=== PATIENT | female | born 1935 | race Caucasian/White ===

== ENCOUNTER → 2016-11-16 | Outpatient (CLI) | payer MEDICARE, BC ==
[~2016-11-16] MED LIST: AMLO2.5T2 PO; ATOR20TA38 PO; CALC500T PO; FURO-109 PO; GABA100C14 PO; KETO5DRO21 BOTH EYES; METO100T13 PO; MULT-552 PO; OMEP20CA16 PO; OXYM15SP34 NASAL; POTA-57 PO; PRED10TA PO; RIVA20TA PO; TRAM50TA2 PO
--- NOTE | 2016-11-16 18:08 | RADRPT ---
PROCEDURE: Limited x-ray of both lower extremities. CLINICAL INDICATION: Bilateral leg pain. TECHNIQUE: Single frontal view of both lower extremities was obtained from the hips to the calves. COMPARISON: None. FINDINGS: The hips are not well seen due to overlying soft tissues. There are severe degenerative changes of the right knee with lateral joint compartment narrowing and valgus deformity. There are mild degene rative changes of the left knee. IMPRESSION: 1. It is not well seen. 2. Severe degenerative changes of the right knee with valgus deformity. 3. Mild degenerative changes of the left knee. RPTAT: QQ .Star Larson MD, MD Date Time Electronically viewed and signed by .Star Larson MD, MD on 11/16/2016 18:07 .R/
== END | disposition home or self-care (01) ==
LOC: HKI 09:03
PROVIDERS: ATTEND Orthopaedic Surgery
DX: Z01.818 Encounter for other preprocedural examination (principal); M17.11 Unilateral primary osteoarthritis, right knee; M25.561 Pain in right knee; Z88.0 Allergy status to penicillin
CPT/HCPCS: 77073; G0463

== ENCOUNTER 2016-11-22 07:15 | Inpatient (IN) | payer MEDICARE, BC ==
--- NOTE | 2016-11-19 19:20 | CONS ---
DATE OF ADMISSION: 11/22/2016 DATE OF CONSULTATION: 11/19/2016 Thank you very much for allowing me to evaluate the above patient who is to undergo right knee repla cement on the above-mentioned date. HISTORICAL EVENTS: As you well know, this patient has had progressive and limiting pain involving h er right knee, and for this ultimately elected to treat with surgical intervention. Today, she trell es cough, wheezing, shortness of breath, substernal chest pain, radiating neck, arm or jaw discomfor t. She denies nausea, vomiting, abdominal pain, unusual constipation or diarrhea and denies symptom s of gastrointestinal bleeding with review of systems revealing the absence of dysuria, flank evert n, fever, chills or blood in her urine. PRESENT MEDICATIONS: 1. Lasix 40 mg/day. 2. Lipitor 20 mg per day. 3. Metoprolol succinate 100 mg day. 4. Ambien at bedtime p.r.n. 5. Neurontin 300 mg at night. 6. Omeprazole 20 mg per day, having stopped aspirin and Coumadin. PAST MEDICAL HISTORY: Includes: 1. Hypertension. 2. Hyperlipidemia. 3. Prior smoker. 4. Prior cholecystectomy. 5. Partial hysterectomy. 6. Mild osteopenia. 7. History of low back pain, having had epidurals in the past. 8. Aortic stenosis, undergoing percutaneous valve surgery in 10/2015 at [facility] having been maintain ed on Coumadin because of a "small clot" on the aortic valve noted by CT imaging. 9. Carotid noninvasive vascular studies have been unrevealing through 07/2015. 10. History of bilateral cataract surgery. 11. History of rapid atrial fibrillation in 06/2015, converting to sinus rhythm. ALLERGIES OR INTOLERANCES: INCLUDE: 1. PENICILLIN. 2. CODEINE. 3. ECHO-D. 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 She is a , has 2 children. FAMILY HISTORY: Dad of an aortic aneurysm. Mother breast cancer. PHYSICAL EXAMINATION: GENERAL: Overweight female in no acute distress. VITAL SIGNS: BP 129/72, respirations were 18. She was afebrile. EYES: Extraocular muscles were full. NOSE, MOUTH, AND THROAT: Normal. NECK: Supple. There was no jugular venous distention, thyroid enlargement or adenopathy. Carotids 2+, no bruits. LUNGS: Clear. HEART: Rhythm regular, I/ systolic murmur. No third or fourth sound. ABDOMEN: Nontender. Liver and spleen were not palpable. No masses or tenderness were noted. EXTREMITIES: Trace edema. No calf tenderness. Pulses were 1+ bilaterally. IMPRESSION: Pending labs, I forsee no problems with your planned surgical intervention. I will gla dly follow postoperatively with you. Dictated By: CUCO ALLEN/ANGELINA Conf#: [id number] DID#: [id number]
[2016-11-22] VITALS (17 sets, daily range): BP systolic 103–155; BP diastolic 43–79; PULSE 62–83; RESP 10–21
[~2016-11-22] VITALS: Ht 152.4 cm; Wt 79.2 kg
[2016-11-22] MEDS ORDERED: EXPAREL NOTE (BUPIVICAINE LIPOSOMAL) XX SCH (08:00)
[2016-11-22] MEDS ORDERED: VANCOMYCIN 1 GM/NS 250 ML X1 BEFORE INCISION IVPB ONE (08:00)
[2016-11-22] MEDS ORDERED: PREGABALIN 300 MG PO X1 PO ONE (08:00)
[2016-11-22] MEDS ORDERED: oxyCODONE (CR) 10 MG TAB [oxyCONTIN] X1 DOSE PO ONE (08:00)
[2016-11-22] MEDS ORDERED: TRANEXAMIC ACID 800 MG in SOD CHLORIDE 0.9% 92 ML IV ONE (08:00)
[2016-11-22] MEDS ORDERED: BUPIVACAINE LIPOSOME/PF 266 MG/20 ML VIAL INFIL SCH (08:00)
[2016-11-22] MEDS ORDERED: LACTATED RINGER'S 1,000 ML IV SCH (08:00)
[2016-11-22] MEDS ORDERED: traMADOL 50 MG TAB X 1 DOSE PO ONE (08:00)
[2016-11-22] MEDS ORDERED: CELECOXIB 400 MG PO X1 DOSE PO ONE (08:00)
[2016-11-22] MEDS ORDERED: PROPOFOL 100 ML ONE (09:41)
[2016-11-22] MEDS ORDERED: ROCURONIUM 50 MG INJ ONE (09:41)
[2016-11-22] MEDS ORDERED: CEFAZOLIN 1 GM INJ ONE ×2 (09:41→11:09)
[2016-11-22] MEDS ORDERED: FENTAnyl 50 MCG/ML VIAL ONE (09:41)
[2016-11-22] MEDS ORDERED: LIDOCAINE 100 MG SYRINGE ONE (09:41)
[2016-11-22] MEDS ORDERED: NEOSTIGMINE 3 MG/3 ML SYRINGE ONE (09:41)
[2016-11-22] MEDS ORDERED: ETOMIDATE 20 MG INJ ONE (09:41)
[2016-11-22] MEDS ORDERED: GLYCOPYRROLATE 1 MG INJ ONE (09:41)
[2016-11-22] MEDS ORDERED: DEXAMETHASONE 4 MG/ML 1 ML INJ ONE (09:42)
[2016-11-22] MEDS ORDERED: MIDAZOLAM 1 MG/ML 2 ML INJ ONE (09:42)
[2016-11-22] MEDS ORDERED: ONDANSETRON 4 MG INJ ONE (09:42)
[2016-11-22 09:57] LABS: INR 1.15; PROTIME 14.7 Sec (12.2-14.2); PT RATIO 1.1
[2016-11-22] MEDS ORDERED: TRANEXAMIC ACID 800 MG in SOD CHLORIDE 0.9% 100 ML IVPB SCH (10:00)
--- NOTE | 2016-11-22 10:19 | HPN ---
Date/Time of Note Date/Time of Note DATE: 11/22/16 TIME: 10:18 Interval H&P Admission Note Pt. seen H&P reviewed: No system changes No change from H&P on 10/16/16 by LESIA Ruano MD Nov 22, 2016 10:19
[2016-11-22] MEDS ORDERED: DIPHENHYDRAMINE 50 MG INJ IV PRN (11:30)
[2016-11-22] MEDS ORDERED: EPHEDrine SULFATE 50 MG/5 ML SYG IV PRN (11:30)
[2016-11-22] MEDS ORDERED: MEPERIDINE 25 MG INJ IV PRN (11:30)
[2016-11-22] MEDS ORDERED: hydrALAzine 20 MG INJ IV PRN (11:30)
[2016-11-22] MEDS ORDERED: HYDROmorphONE (0.2 MG/ML) 10ML SYG IV PRN ×3 (11:30)
[2016-11-22] MEDS ORDERED: MIDAZOLAM 1 MG/ML 2 ML INJ IV PRN (11:30)
[2016-11-22] MEDS ORDERED: FENTAnyl 50 MCG/ML VIAL IV PRN ×3 (11:30)
[2016-11-22] MEDS ORDERED: ONDANSETRON 4 MG INJ IV PRN ×2 (11:30→13:00)
[2016-11-22] MEDS ORDERED: LABETALOL HCL 20MG INJ IV PRN (11:30)
[2016-11-22] MEDS ORDERED: TRIMETHOBENZAMIDE 100 MG/ML VIAL IM PRN (11:30)
[2016-11-22] MEDS ORDERED: SODIUM CL BACTERIOSTATIC 30 ML INJ ONE (11:31)
[2016-11-22] MEDS ORDERED: POLYMYXIN B 500000 UNIT INJ ONE (11:31)
[2016-11-22] MEDS ORDERED: VANCOMYCIN 1 GM INJ ONE (11:31)
[2016-11-22] MEDS ORDERED: BACITRACIN 50000 UNITS INJ IRR ONE (11:50)
[2016-11-22] MEDS ORDERED: BACITRACIN 50000 UNITS INJ ONE (12:16)
[2016-11-22] MEDS: PAIN COCKTAIL - VANCOMYCIN IRR SCH ×7 (12:16)
[2016-11-22] MEDS ORDERED: DIPHENHYDRAMINE 25 MG CAP PO PRN (13:00)
[2016-11-22] MEDS ORDERED: BISACODYL 10 MG SUPP PR PRN (13:00)
[2016-11-22] MEDS ORDERED: MAGNESIUM HYDROXIDE 30ML CUP PO PRN (13:00)
[2016-11-22] MEDS ORDERED: oxyCODONE 5 MG TAB PO PRN ×2 (13:00)
[2016-11-22] MEDS ORDERED: NA PHOSPHATE/BIPHOS 133 ML ENEMA PR PRN (13:00)
[2016-11-22] MEDS ORDERED: HYDROmorphONE 1 MG/ML SYG IV PRN (13:00)
[2016-11-22] MEDS ORDERED: NACL 0.9% 3 ML SYG IV SCH (13:00)
--- NOTE | 2016-11-22 13:58 | CONS ---
DATE OF ADMISSION: 11/22/2016 DATE OF CONSULTATION: 11/22/2016 TYPE OF CONSULTATION: Postop medical Dear Dr. Whalen: Thank you very much for allowing me to evaluate the above patient, who just underwent right knee rep lacement. HISTORICAL EVENTS: As you well know, this patient did undergo surgery earlier today for unrelenting pain involving her right knee. In recovery postoperatively, she is comfortable without cough, whee zing, shortness of breath, nausea, vomiting, abdominal or chest pain. As you well know, prior to villegas rgery she did have evidence of pyuria and bacteriuria, and was given Cipro, having received 2 doses prior to surgery. MEDICATIONS: Prior to admission: 1. Lasix 40 mg per day. 2. Lipitor 20 mg per day. 3. Metoprolol 100 mg per day. 4. Ambien 5 at bedtime p.r.n. 5. Neurontin 300 mg per night. 6. Omeprazole 20 mg daily, having stopped Coumadin and aspirin. PAST MEDICAL HISTORY: Includes: 1. Hypertension. 2. Hyperlipidemia. 3. Prior smoker. 4. Partial hysterectomy. 5. Cholecystectomy. 6. History of osteopenia. 7. Aortic stenosis, undergoing a percutaneous valve surgery 10/2015. 8. History of atrial fibrillation in 07/14/2016, now in sinus rhythm. ALLERGIES OR INTOLERANCES: INCLUDE: 1. PENICILLIN. 2. CODEINE. 3. ECHO-D. 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 FAMILY HISTORY: Positive for aortic aneurysm. Mother had breast cancer. PHYSICAL EXAMINATION: GENERAL: [place] female in no acute distress. VITAL SIGNS: BP 122/80, pulse 70, respirations are 20, she was afebrile. EYES: Extraocular muscles were full. NOSE, MOUTH, AND THROAT: Normal. NECK: Supple. There was no jugular venous distention, thyroid enlargement, or adenopathy. Carotid s 2+. LUNGS: Clear. HEART: Rhythm regular, I/ systolic murmur. No third or fourth sound. ABDOMEN: Nontender. Liver and spleen were not palpable. EXTREMITIES: The right was bandaged. The left revealed no edema or calf tenderness. IMPRESSION: 1. Stable postop right knee replacement. 2. History of aortic valve replacement. Will need Coumadin postop. 3. Will evaluate daily for signs and symptoms of thromboembolic disease. 4. History of hypertension. Beta duran will be continued. She will not need Lasix for now. Dictated By: CUCO ALLEN/ANGELINA Conf#: [id number] DID#: [id number]
--- NOTE | 2016-11-22 13:58 | OPPN ---
Date/Time of Note Date/Time of Note DATE: 11/22/16 TIME: 13:57 Operative/Procedure Note Dictation # [id number] Pre-Operative Diagnosis Right Knee OA Post-Operative Diagnosis Same Procedure Right TKA Surgeon: LESIA ARRIAZA MD Tobacco Cutter: YULIYA CONCEPCION PA-C Anesthesiologist: Santos Cannon M.D. Findings Severe OA Blood Usage/Administration None Implants/Grafts Depuy Attune TKA Estimated blood loss: 50 - 100 ml's Drains Hemovac x 1 Specimens Bone and soft tissue Complications: None Anesthesia type: spinal LESIA ARRIAZA MD Nov 22, 2016 13:58
[2016-11-22 14:05] LABS: HEMATOCRIT 32.6 % (37.0-47.0); HEMOGLOBIN 10.8 g/dl (12.0-16.0)
[2016-11-22 14:25] LABS: ADD UMIC NO; URINE BILIRUBIN (Dip) NEGATIVE (NEGATIVE); URINE BLOOD (Dip) NEGATIVE (NEGATIVE); URINE COLOR LT. YELLOW (YELLOW); URINE GLUCOSE (Dip) NEGATIVE (NEGATIVE); URINE KETONES (Dip) NEGATIVE (NEGATIVE); URINE LEUKOCYTE ESTERASE (Dip) NEGATIVE (NEGATIVE); URINE NITRITE (Dip) NEGATIVE (NEGATIVE); URINE TOTAL PROTEIN (Dip) NEGATIVE (NEGATIVE); URINE UROBILINOGEN (Dip) 0.2 E.U./dL (0.1-1.0)
--- NOTE | 2016-11-22 14:25 | OPR ---
DATE OF OPERATION: 11/22/2016 PREOPERATIVE DIAGNOSIS: Right knee osteoarthritis. POSTOPERATIVE DIAGNOSIS: Right knee osteoarthritis. OPERATION PERFORMED: Right total knee arthroplasty. SURGEON: Lesia Whalen MD UNDERLAY STITCHER: REMI Vega COMPONENTS USED: DePuy Attune size 5 femoral component, size 5 tibial baseplate , 7-mm polyethylene insert, and a 35 patellar button. ANESTHESIA: Spinal plus general endotracheal intubation, plus periarticular injection. ANESTHESIOLOGIST: Dr. Cannon TOURNIQUET TIME: 52 minutes. ESTIMATED BLOOD LOSS: 50 mL. INTRAVENOUS FLUIDS: Two liters of crystalloid. SPECIMENS: Bone and soft tissue. DRAINS: Hemovac x1. COMPLICATIONS: None. DISPOSITION: Patient tolerated the procedure well and was taken to the recovery room in stable condition. INDICATIONS: The patient is a 81-year-old woman who has had progressive worsening pain in the right knee, with radiographic evidence of severe osteoarthritis. She has failed nonsurgical means of treatment to control her pain, including activity modifications, pain medications, intra-articular injections and ambulatory assist devices. Despite these measures, she has had worsening pain and I felt she would benefit from a total knee arthroplasty. The risks, benefits, and alternatives of the procedure were explained in detail to the patient. I explained the risks of the surgery to include but not be limited to, bleeding and possible need for blood transfusion; infection; pain; stiffness; neurovascular injury with possible numbness, weakness, and/or paralysis anywhere from the knee down to the toes; fracture; instability; dislocation; wear and/or loosening of the prosthesis and possible need for future revision; blood clots; pulmonary embolism; and anesthetic complications such as heart attack, stroke, GI bleed, pneumonia, and/or . Ample time was allowed for the patient to ask questions, all of which were addressed and answered. The patient understood the risks involved and wished to proceed. Informed consent was signed prior to the procedure. PROCEDURE: The patient's right knee was initialed with a marking pen in the preoperative area to identify the correct operative site. The patient was brought to the operating room and transferred from the [facility] to the operating table where a spinal anesthetic was administered. The patient was then anesthetized and intubated. A Drake catheter was placed. A timeout was performed to confirm that the right leg was the correct operative site. The patient was given 2 g of Ancef within one hour prior to the procedure. A tourniquet was placed on the operative proximal thigh. The operative knee and lower extremity were prepped and draped in the usual sterile fashion. The operative lower extremity was elevated and exsanguinated with an Esmarch tourniquet. The proximal thigh tourniquet was inflated to 300 mmHg. The knee was flexed. A midline incision was made and carried down through the subcutaneous tissue and fat with sharp dissection. Limited medial and lateral flaps were raised. A right median patellar approach was performed. Synovial fluid was normal in color and consistency. The patella was everted and the knee flexed. There were severe tricompartmental osteoarthritic changes noted. A lateral release was performed using the inverted crucifix technique. The ACL and PCL and remnants of the menisci were excised. The stepped drill was used to open up the femoral canal which was irrigated and sucked dry. The intramedullary guide diego was passed up the femur, and the distal cutting block was pinned into place for a 6 degree valgus cut, taking 10 mm of bone off distally. The oscillating saw was used to make the cut. The tibia was subluxed anteriorly. The tibial cutoff jig was placed over the center of the talus distally and over the junction of the medial and middle third of the tibial tubercle proximally. The guide was pinned into place and the oscillating saw was used to make the cut. The tibia was sized. At this point, the femur was sized with the posterior referencing guide. Two holes were drilled in 3 degrees of external rotation. The two holes were in line with the transepicondylar axis, perpendicular to Del's line, and in line with the tibial cutoff jig brought up with the knee flexed 90 degrees and tensed with 2 lamina spreaders, suggesting the femoral rotation was correct. The four-in-one cutting block was pinned into place. The anterior and posterior cuts and chamfer cuts were made with the oscillating saw. The flexion gap was checked and accommodated the 7-mm spacer block. There was no varus or valgus instability, suggesting the flexion and extension gaps were now equal. The central box was cut out on the femur. The tibia was drilled and punched in proper rotation. Trial components were placed into position with a trial insert. The patella was cut from 23 mm down to 13 mm in size. Three holes were drilled and the trial button placed in position. With all the trials now in place, the knee was taken through range of motion and came to full extension as evidenced by the fact that with the foot on my abdomen and axial loading, there was no tendency for the knee to flex. The knee was able to be flexed to 125 degrees with good patellar tracking with no lateral tilt or subluxation. At this point, I was satisfied with the overall range of motion, stability, and patellar tracking. The trials were removed. The real components were opened. Two bags of cement were mixed, one with and one without premixed antibiotic. The knee was irrigated with antibiotic saline and sucked dry. Once the cement was in a doughy stage, the real components were cemented into place. The knee was held in full extension, and the patellar component was held with a patellar clamp. All excess cement was removed with curettes. As the cement was hardening, the synovial/capsular layer was infiltrated with a mixture of 150 mg of 0.5% Bupivacaine, 8 mg of Duramorph, 300 mcg of epinephrine, 30 mg of Toradol, 100 mcg of clonidine, 750 mg of cefuroxime and 86 mL of normal saline, followed by an injection of 266 mg of liposomal Bupivacaine. A Hemovac drain was placed in the deep portion of the wound and brought out the anterolateral thigh. Once the cement was completely hardened, the trial liner was removed, and the real insert was opened. The tourniquet was let down, and there was good hemostasis. The knee was then irrigated with a mixture of betadine/saline and then antibiotic saline with pulsatile lavage. The real insert was impacted into the tibia and reduced onto to the femur. The arthrotomy was closed with a few interrupted #1 Ethibond in a figure-of- eight fashion, and then closed in a watertight fashion with a running #2 Stratafix suture. Knee flexion was checked against gravity and came to 125 degrees. The subcutaneous layer was irrigated and closed with 2-0 Statafix, and then 3-0 Vicryl and then kaykay on the skin. The wound was covered with an occlusive dressing, and secured with cast padding and a bias dressing. The drain was secured with 3-0 nylon. The sponge and needle counts were correct at the end of the case. The patient was then awakened, extubated, and taken to the recovery room in stable condition. Dictated By: LESIA DURAN/ANGELINA Conf#: [id number] DID#: [id number] MTDD
--- NOTE | 2016-11-22 14:32 | RADRPT ---
PROCEDURE: XR Knee. CLINICAL INDICATION: Postop TECHNIQUE: AP and lateral views of the right knee are available for review. COMPARISON: None available FINDINGS: A cemented right total knee arthroplasty is present in near anatomic alignment without acute radiogr aphic abnormality. Recent surgical changes seen in the soft tissues. Atherosclerotic vascular calci fications are present. IMPRESSION: 1. Total right knee arthroplasty in near anatomic alignment without acute radiographic abnormality RPTAT: TT .Kam Dotson MD, MD Date Time Electronically viewed and signed by .Kam Dotson MD, MD on 11/22/2016 14:31 .d/
[2016-11-22 14:45] LABS: CALCIUM 8.7 mg/dl (8.4-10.2); CREATININE 1.02 mg/dl (0.44-1.00); POTASSIUM 4.4 mmol/L (3.5-5.1)
[2016-11-22] MEDS: LACTATED RINGER'S 1,000 ML IV SCH ×2 (15:43→21:00)
[2016-11-22] MEDS ORDERED: TRANEXAMIC ACID 790 MG in SOD CHLORIDE 0.9% 100 ML IVPB ONE ×2 (16:00→19:00)
[2016-11-22] MEDS ORDERED: WARFARIN 1 MG TAB PO ONE (17:00)
[2016-11-22] MEDS: CIPROFLOXACIN 500 MG TAB PO SCH (17:12)
[2016-11-22] MEDS: PANTOPRAZOLE (EC) 40 MG TAB PO SCH (17:12)
[2016-11-22] MEDS: ACETAMINOPHEN 1000MG/100ML IV 100 ML IVPB SCH (17:13)
[2016-11-22] MEDS: traMADol 50 MG TAB PO SCH (18:00)
[2016-11-22] MEDS: ATORVASTATIN 20 MG TAB PO SCH (21:13)
[2016-11-22] MEDS: DOCUSATE SODIUM 100 MG CAP PO SCH (21:13)
[2016-11-22] MEDS: PREGABALIN 25 MG CAP PO SCH (21:13)
[2016-11-22] MEDS: VANCOMYCIN 1 GM (PMX) 250 ML IVPB SCH (21:45)
[2016-11-23] VITALS: BP 145/76; PULSE 72; RESP 18
[2016-11-23] MEDS: traMADol 50 MG TAB PO SCH ×4 (00:24→18:29)
[2016-11-23] MEDS: ACETAMINOPHEN 1000MG/100ML IV 100 ML IVPB SCH ×3 (00:28→12:58)
[2016-11-23] MEDS: LACTATED RINGER'S 1,000 ML IV SCH ×3 (00:32→21:00)
[2016-11-23] MEDS ORDERED: preser vision PO (02:59)
[2016-11-23 05:00] VITALS: BP 135/82; PULSE 68; RESP 16
[2016-11-23 05:49] LABS: INR 1.11; PROTIME 14.3 Sec (12.2-14.2); PT RATIO 1.1
[2016-11-23 05:55] LABS: HEMATOCRIT 36.3 % (37.0-47.0); HEMOGLOBIN 11.8 g/dl (12.0-16.0)
[2016-11-23 06:00] LABS: CREATININE 0.96 mg/dl (0.44-1.00)
[2016-11-23] MEDS ORDERED: FUROSEMIDE 40 MG TAB PO SCH (06:00)
[2016-11-23 06:01] LABS: CALCIUM 8.9 mg/dl (8.4-10.2)
[2016-11-23] MEDS: PANTOPRAZOLE (EC) 40 MG TAB PO SCH ×2 (06:18→18:24)
[2016-11-23] MEDS: CIPROFLOXACIN 500 MG TAB PO SCH ×2 (06:19→18:24)
[2016-11-23 07:15] LABS: ADD UMIC YES; URINE BILIRUBIN (Dip) NEGATIVE (NEGATIVE); URINE BLOOD (Dip) TRACE (NEGATIVE); URINE COLOR LT. YELLOW (YELLOW); URINE GLUCOSE (Dip) NEGATIVE (NEGATIVE); URINE KETONES (Dip) NEGATIVE (NEGATIVE); URINE LEUKOCYTE ESTERASE (Dip) NEGATIVE (NEGATIVE); URINE NITRITE (Dip) NEGATIVE (NEGATIVE); URINE TOTAL PROTEIN (Dip) NEGATIVE (NEGATIVE); URINE UROBILINOGEN (Dip) 0.2 E.U./dL (0.1-1.0)
--- NOTE | 2016-11-23 07:45 | PDOCDIS ---
Discharge Instructions DIAGNOSIS Discharge Diagnosis: s/p right TKA CONDITION Patient Condition: Good HOME CARE INSTRUCTIONS: Diet Instructions: Regular ACTIVITY: Activity Restrictions: Slowly Increase Activity Rest between Activity Avoid heavy lifting Do not operate Machinery Do not operate Power Tool Avoid Heavy Housework Keep Limb Elevated Bathing Restrictions: Shower FOLLOW UP/APPOINTMENTS Appointments follow up in the office on 12/03/16 OTHER ORDERS: Other Orders: S/P TKA Physical Therapy: Three times per week at home x 2 weeks Daily in Rehab/SNF WB STATUS: WBAT 1. Strengthening exercises for both upper and un-operated lower extremities. 2. Gait training with front wheeled walker 3. Active range of motion exercises to operative knee. 4. When not working on knee range of motion exercises, distal towel roll under operative ankle/distal calf to promote full extension. 5. DO NOT PUT ANYTHING BEHIND OPERATIVE KNEE!!! 6. Quadriceps and hamstring strengthening. 7. May switch to cane in contra lateral hand 6 weeks after surgery. 8. Physical Therapy can open case if nursing is not available. 9. Use Ice Machine as instructed from date of surgery while at rest 3X/day. 10. Patient requires mobile SCDs to reduce risk of developing DVT following TKA. Patient will use the mobile SCDs for 30 days postoperatively. Bathing assistance by home health aide twice weekly if Medicare patient. Occupational Therapy: Evaluation for assistive devices and ADL training. Wound Care: Keep incision dry & covered with Tegaderm until first visit with Dr. Whalen Anticoagulation Orders: Enteric Coated Aspirin 325 mg po bid x 6 weeks from date of surgery Follow-up:Call for an appointment with Dr. Whalen in 1 week after discharged from hospital at DME Orders: BEBE, 3-in-1 Commode, Polar ice machine, Mobile SCDs YULIYA CONCEPCION PA-C Nov 23, 2016 07:45
--- NOTE | 2016-11-23 07:51 | PDOCDIS ---
Discharge Instructions DIAGNOSIS Discharge Diagnosis: s/p right TKA CONDITION Patient Condition: Good HOME CARE INSTRUCTIONS: Diet Instructions: Regular ACTIVITY: Activity Restrictions: Slowly Increase Activity Rest between Activity Avoid heavy lifting Do not operate Machinery Do not operate Power Tool Avoid Heavy Housework Keep Limb Elevated Bathing Restrictions: Shower OTHER ORDERS: Other Orders: S/P TKA Physical Therapy: Three times per week at home x 3 weeks Daily in Rehab/SNF WB STATUS: WBAT 1. Strengthening exercises for both upper and un-operated lower extremities. 2. Gait training with front wheeled walker 3. Active range of motion exercises to operative knee. 4. When not working on knee range of motion exercises, distal towel roll under operative ankle/distal calf to promote full extension. 5. DO NOT PUT ANYTHING BEHIND OPERATIVE KNEE!!! 6. Quadriceps and hamstring strengthening. 7. May switch to cane in contra lateral hand 6 weeks after surgery. 8. Physical Therapy can open case if nursing is not available. 9. Use Ice Machine as instructed from date of surgery while at rest 3X/day. 10. Patient requires mobile SCDs to reduce risk of developing DVT following TKA. Patient will use the mobile SCDs for 30 days postoperatively. Bathing assistance by home health aide twice weekly if Medicare patient. Occupational Therapy: Evaluation for assistive devices and ADL training. Wound Care: Keep incision dry & covered with Tegaderm until first visit with Dr. Whalen Anticoagulation Orders: Adjusted Coumadin dose x 3 weeks from the date of surgery. Target INR 1.7-2.0. Prothrombin time & INR are done every Saturday and for three weeks post- operatively. Please call and leave a message with Di @ [phone] with results the same day before the close of business. The patient should not eat green leafy vegetables. Follow-up: Call for an appointment with Dr. Whalen in 1 week after discharged from hospital at . DME Orders: FWW, 3-in-1 Commode, Polar ice machine, Mobile SCDs YULIYA CONCEPCION PA-C Nov 23, 2016 07:51
[2016-11-23 08:06] VITALS: BP 116/67; RESP 18
[2016-11-23 08:13] LABS: URINE RBCS NONE SEEN /HPF (0)
--- NOTE | 2016-11-23 08:38 | CONS ---
Date/Time of Note Date/Time of Note DATE: 11/23/16 TIME: 08:35 Assessment/Plan Assessment/Plan Additional Assessment/Plan 1. Aortic stenosis, undergoing percutaneous valve surgery, Coumadin has been resumed. 2. Doing well post right knee surgery. 3. HBP, controlled Consultation Date/Type/Reason Admit Date/Time Nov 22, 2016 at 07:15 Initial Consult Date Detailed Summary ENT: other, sore throat (mild) Respiratory: No cough, No shortness of breath Cardiovascular: No chest pain Gastrointestinal: no complaints Genitourinary: other (flores in place) Musculoskeletal: bone/joint pain (mild right knee pain) Exam/Review of Systems Vital Signs Vitals Vital Signs Date Time Temp Pulse Resp B/P Pulse Ox O2 Delivery O2 Flow Rate FiO2 11/23/16 08:06 97.5 79 18 116/67 95 11/23/16 05:00 Nasal Cannula 2.0 Intake and Output 11/22/16 11/22/16 11/23/16 15:00 23:00 07:00 Intake Total 2000 ml 475 ml 1555 ml Output Total 250 ml 400 ml 940 ml Balance 1750 ml 75 ml 615 ml Exam Neck: No jvd Respiratory: clear to auscultation Cardiovascular: regular rate and rhythm Gastrointestinal: soft Extremities: No tenderness (bilat) Results Result Diagram: 11/23/16 0440 11/23/16 0440 Results 24 hrs Laboratory Tests Test 11/22/16 09:10 11/22/16 13:04 11/22/16 13:20 11/23/16 04:40 Activated Partial Thromboplast Time 26.0 INR International Normalized Ratio 1.15 1.11 Prothrombin Time 14.7 H 14.3 H Prothrombin Time Ratio 1.1 1.1 Urine Bilirubin NEGATIVE Urine Clarity CLEAR Urine Color LT. YELLOW Urine Glucose NEGATIVE Urine Hemoglobin NEGATIVE Urine Ketones NEGATIVE Urine Leukocyte Esterase NEGATIVE Urine Nitrite NEGATIVE Urine Specific [place] 1.010 Urine Total Protein NEGATIVE Urine Urobilinogen 0.2 E.U./dL Urine pH 6.0 Anion Gap 13 13 Blood Urea Nitrogen 24 H 20 Calcium Level 8.7 8.9 Carbon Dioxide Level 26 27 Chloride Level 107 103 Creatinine 1.02 H 0.96 Glucose Level 114 110 Hematocrit 32.6 L 36.3 L Hemoglobin 10.8 L 11.8 L Potassium Level 4.4 5.0 Sodium Level 142 138 Test 11/23/16 05:20 Urine Bilirubin NEGATIVE Urine Clarity CLEAR Urine Color LT. YELLOW Urine Glucose NEGATIVE Urine Hemoglobin TRACE Urine Ketones NEGATIVE Urine Leukocyte Esterase NEGATIVE Urine Microscopic RBC NONE SEEN Urine Microscopic WBC NONE SEEN Urine Nitrite NEGATIVE Urine Specific [place] 1.010 Urine Total Protein NEGATIVE Urine Urobilinogen 0.2 E.U./dL Urine pH 6.0 Medications Medications Current Medications Miscellaneous Information 1 ea NOTE XX ; Start 11/22/16 at 08:00; Stop 11/26/16 at 07:59 Atorvastatin Calcium (Lipitor) 20 mg HS PO Last administered on 11/22/16 21:13 ; Admin Dose 20 MG; Start 11/22/16 at 21:00 Metoprolol Succinate 100 mg 100 mg DAILY PO ; Start 11/23/16 at 09:00 Lactated Ringer's (Lr) 1,000 ml @ 125 mls/hr Q8H IV Last administered on 00:32; Admin Dose 125 MLS/HR; Start 11/22/16 at 13:00 Celecoxib 200 mg 200 mg DAILY PO ; Start 11/23/16 at 09:00 Acetaminophen (Ofirmev 1000mg/ 100ml Iv) 100 ml @ 400 mls/hr Q6 IVPB Last administered on 11/23/16 06:19; Admin Dose 400 MLS/HR; Start 11/22/16 at 18:00 ; Stop 11/23/16 at 17:59 Tramadol HCl (Ultram) 50 mg Q6 PO Last administered on 11/23/16 06:19; Admin Dose 50 MG; Start 11/22/16 at 12:00; Stop 11/25/16 at 11:59 Oxycodone HCl (Roxicodone) 5 mg Q4H PRN PO PAIN LEVEL 1-3; Start 11/22/16 at 13 :00 Oxycodone HCl (Roxicodone) 10 mg Q4H PRN PO PAIN LEVEL 4-7; Start 11/22/16 at 13:00 Hydromorphone HCl 1 mg 1 mg Q3H PRN IV PAIN LEVEL 8-10; Start 11/22/16 at 13:00 Vancomycin HCl (Vancocin) 250 ml @ 125 mls/hr Q12 IVPB Last administered on 21:45; Admin Dose 125 MLS/HR; Start 11/22/16 at 21:00; Stop 11/23/16 at 10:59 Ondansetron HCl (Zofran Inj) 4 mg Q6H PRN IV NAUSEA AND/OR VOMITING; Start at 13:00 Bisacodyl (Dulcolax Supp) 10 mg Q12H PRN OR CONSTIPATION; Start 11/22/16 at 13: 00 Magnesium Hydroxide (Milk Of Mag) 30 ml BID PRN PO CONSTIPATION Last administered on 11/22/16 17:12; Admin Dose 30 ML; Start 11/22/16 at 13:00 Sodium Biphosphate/ Sodium Phosphate (Fleet Enema) 133 ml DAILY PRN OR CONSTIPATION; Start 11/22/16 at 13:00 Docusate Sodium (Colace) 100 mg BID PO Last administered on 11/22/16 21:13; Admin Dose 100 MG; Start 11/22/16 at 21:00 Diphenhydramine HCl (Benadryl) 25 mg Q6H PRN PO PRURITUS Last administered on 21:45; Admin Dose 25 MG; Start 11/22/16 at 13:00 Pantoprazole (Protonix Tab) 40 mg BID@18 PO Last administered on 11/23/16 06:18; Admin Dose 40 MG; Start 11/22/16 at 18:00 Pregabalin (Lyrica) 50 mg BID PO Last administered on 11/22/16 21:13; Admin Dose 50 MG; Start 11/22/16 at 21:00 Ciprofloxacin (Cipro) 500 mg BID@,18 PO Last administered on 11/23/16 06:19 ; Admin Dose 500 MG; Start 11/22/16 at 18:00 CUCO ACEVEDO MD Nov 23, 2016 08:38
[2016-11-23] MEDS ORDERED: POTASSIUM CHLORIDE (SR) 20 MEQ TAB PO SCH (09:00)
[2016-11-23] MEDS ORDERED: AMLODIPINE 2.5 MG TAB PO SCH (09:00)
[2016-11-23] MEDS: METOPROLOL (XL) 100 MG TAB PO SCH (09:00)
[2016-11-23] MEDS: DOCUSATE SODIUM 100 MG CAP PO SCH ×2 (09:02→21:08)
[2016-11-23] MEDS: CELECOXIB 200 MG CAP PO SCH (09:02)
--- NOTE | 2016-11-23 09:04 | PN ---
Date/Time of Note Date/Time of Note DATE: 11/23/16 TIME: 09:02 Assessment/Plan Lines/Catheters IV Catheter Type (from Nrsg): Peripheral IV Drake in Place (from Nrsg): Yes Assessment/Plan Assessment/Plan Stable POD #1, s/p left TKA -d/c abx -pain meds as needed -coumadin 2.5mg today at 1700 -check AM labs including INR -drain removed -OOB with PT -d/c planning. Will go to [facility] upon discharge Subjective 24 Hr Interval Summary Doing well. No acute overnight events. Denies significant pain. Complaining only of mild sore throat. Did not start PT yesterday. VSS, afebrile. Would like to go to [facility] upon discharge. Exam/Review of Systems Vital Signs Vitals Vital Signs Date Time Temp Pulse Resp B/P Pulse Ox O2 Delivery O2 Flow Rate FiO2 11/23/16 08:06 97.5 79 18 116/67 95 11/23/16 05:00 Nasal Cannula 2.0 Intake and Output 11/22/16 11/22/16 11/23/16 15:00 23:00 07:00 Intake Total 2000 ml 475 ml 1555 ml Output Total 250 ml 400 ml 940 ml Balance 1750 ml 75 ml 615 ml Exam Free Text/Dictation Hemovac: 190cc Dressing dry Incision clean, dry, and intact without redness or drainage Thigh soft 5/5 Quadriceps, Tibialis Anterior, EHL, Gastroc, Soleus, Peroneals Normal sensation Palpable DT/PT, CR <2 sec No distal edema Results Result Diagram: 11/23/1643911/23/16439 YULIYA CONCEPCION PA-C Nov 23, 2016 09:04
[2016-11-23] MEDS: VANCOMYCIN 1 GM (PMX) 250 ML IVPB SCH (09:06)
[2016-11-23] MEDS: PREGABALIN 25 MG CAP PO SCH ×2 (09:06→21:08)
[2016-11-23] MEDS: CEPASTAT LOZENGE MT PRN ×2 (15:31→18:29)
[2016-11-23] MEDS ORDERED: WARFARIN 2.5 MG TAB PO ONE (17:00)
[2016-11-23] MEDS: MINERAL SUPPLEMENT PO SCH (18:24)
[2016-11-23] MEDS: [UNRECOGNIZED DRUG - OTHER] PO SCH (18:24)
[2016-11-23] MEDS: ATORVASTATIN 20 MG TAB PO SCH (21:08)
[2016-11-23] MEDS ORDERED: [UNRECOGNIZED DRUG - OTHER] XX SCH (22:00)
[2016-11-23] MEDS: ZOLPIDEM 5 MG TAB PO PRN (22:14)
[2016-11-24 07:35] VITALS: BP 129/59; RESP 16
[2016-11-24] MEDS: CELECOXIB 200 MG CAP PO SCH (08:27)
[2016-11-24] MEDS: PANTOPRAZOLE (EC) 40 MG TAB PO SCH ×2 (08:27→17:54)
[2016-11-24] MEDS: METOPROLOL (XL) 100 MG TAB PO SCH (08:34)
[2016-11-24] MEDS: traMADol 50 MG TAB PO SCH ×4 (08:35→16:44)
[2016-11-24] MEDS: CIPROFLOXACIN 500 MG TAB PO SCH (08:35)
[2016-11-24] MEDS: PREGABALIN 25 MG CAP PO SCH ×2 (08:35→20:48)
[2016-11-24] MEDS: [UNRECOGNIZED DRUG - OTHER] PO SCH ×2 (08:36→17:54)
[2016-11-24] MEDS: DOCUSATE SODIUM 100 MG CAP PO SCH ×2 (08:36→20:49)
[2016-11-24] MEDS: MINERAL SUPPLEMENT PO SCH ×2 (08:36→17:54)
--- NOTE | 2016-11-24 10:04 | PN ---
Date/Time of Note Date/Time of Note DATE: 11/24/16 TIME: 10:02 Assessment/Plan Lines/Catheters IV Catheter Type (from Nrsg): Peripheral IV Drake in Place (from Nrsg): Yes Assessment/Plan Assessment/Plan POD # 2. Stable. -OOB with PT -Pain meds -Coumadin/SCDs -Plan for d/c to [facility] on Saturday Subjective 24 Hr Interval Summary Resting comfortably. Minimal pain. Exam/Review of Systems Vital Signs Vitals Vital Signs Date Time Temp Pulse Resp B/P Pulse Ox O2 Delivery O2 Flow Rate FiO2 11/24/16 07:35 97.7 70 16 129/59 98 11/23/16 05:00 Nasal Cannula 2.0 Intake and Output 11/23/16 11/23/16 11/24/16 15:00 23:00 07:00 Intake Total 1020 ml 600 ml Output Total 600 ml 700 ml Balance 420 ml -100 ml Exam Free Text/Dictation Dressing dry Incision clean, dry, and intact without redness or drainage 5/5 Tibialis Anterior, EHL, Gastroc Soleus, Peroneals Normal sensation Palpable DP/PT, CR < 2 Sec No distal edema INR: 1.11 Results Result Diagram: 11/23/16 0440 11/23/16 1335 LESIA ARRIAZA MD Nov 24, 2016 10:03
[2016-11-24 10:06] LABS: HEMATOCRIT 35.2 % (37.0-47.0); HEMOGLOBIN 11.1 g/dl (12.0-16.0)
[2016-11-24 10:11] LABS: CREATININE 1.29 mg/dl (0.44-1.00)
[2016-11-24 10:12] LABS: CALCIUM 8.5 mg/dl (8.4-10.2)
[2016-11-24 10:13] LABS: INR 1.2; PROTIME 15.3 Sec (12.2-14.2); PT RATIO 1.2
--- NOTE | 2016-11-24 13:57 | CONS ---
Date/Time of Note Date/Time of Note DATE: 11/24/16 TIME: 13:44 Consult Date/Type/Reason Admit Date/Time Nov 22, 2016 at 07:15 Initial Consult Date 11/22/2016 Type of Consultation: Medicine Reason for Consultation HLD, HTN, bacteruria Ordering Provider: LESIA ARRIAZA MD Subjective Patient doing well other than mild sore throat. No chest pain, sob, cough, nausea, vomiting. Has also been constipated. Pain is well controlled. Also has been constipated. Objective Vital Signs Date Time Temp Pulse Resp B/P Pulse Ox O2 Delivery O2 Flow Rate FiO2 11/24/16 07:35 97.7 70 16 129/59 98 11/23/16 05:00 Nasal Cannula 2.0 Intake and Output 11/23/16 11/23/16 11/24/16 15:00 23:00 07:00 Intake Total 1020 ml 600 ml Output Total 600 ml 700 ml Balance 420 ml -100 ml Gen: NAD, laying in bed comfortably HEENT: OP clear, no scleral icterus. AT/NC Cards: rrr, nml s1/s2, no m/r/g Pulm: CTAB. No wheezes Abd: soft, nt/nd, +BS ext: no c/c/e Results/Medications Result Diagram: 11/24/1649 11/24/16 0949 Results 24 hrs Laboratory Tests Test 11/24/16 09:49 Anion Gap 13 Blood Urea Nitrogen 25 H Calcium Level 8.5 Carbon Dioxide Level 28 Chloride Level 104 Creatinine 1.29 H Glucose Level 92 Hematocrit 35.2 L Hemoglobin 11.1 L INR International Normalized Ratio 1.20 Potassium Level 4.0 Prothrombin Time 15.3 H Prothrombin Time Ratio 1.2 Sodium Level 141 Medications Current Medications Miscellaneous Information 1 ea NOTE XX ; Start 11/22/16 at 08:00; Stop 11/26/16 at 07:59 Atorvastatin Calcium (Lipitor) 20 mg HS PO Last administered on 11/23/16 21:08 ; Admin Dose 20 MG; Start 11/22/16 at 21:00 Metoprolol Succinate (Toprol Xl) 100 mg DAILY PO Last administered on 08:34; Admin Dose 100 MG; Start 11/23/16 at 09:00 Celecoxib (Celebrex) 200 mg DAILY PO Last administered on 11/24/16 08:27; Admin Dose 200 MG; Start 11/23/16 at 09:00 Tramadol HCl (Ultram) 50 mg Q6 PO Last administered on 11/24/16 08:35; Admin Dose 50 MG; Start 11/22/16 at 12:00; Stop 11/25/16 at 11:59 Oxycodone HCl (Roxicodone) 5 mg Q4H PRN PO PAIN LEVEL 1-3; Start 11/22/16 at 13 :00 Oxycodone HCl (Roxicodone) 10 mg Q4H PRN PO PAIN LEVEL 4-7; Start 11/22/16 at 13:00 Hydromorphone HCl (Dilaudid) 1 mg Q3H PRN IV PAIN LEVEL 8-10; Start 11/22/16 at 13:00 Ondansetron HCl (Zofran Inj) 4 mg Q6H PRN IV NAUSEA AND/OR VOMITING; Start at 13:00 Bisacodyl (Dulcolax Supp) 10 mg Q12H PRN [place] CONSTIPATION; Start 11/22/16 at 13: 00 Magnesium Hydroxide (Milk Of Mag) 30 ml BID PRN PO CONSTIPATION Last administered on 11/22/16 17:12; Admin Dose 30 ML; Start 11/22/16 at 13:00 Sodium Biphosphate/ Sodium Phosphate (Fleet Enema) 133 ml DAILY PRN [place] CONSTIPATION; Start 11/22/16 at 13:00 Docusate Sodium (Colace) 100 mg BID PO Last administered on 11/24/16 08:36; Admin Dose 100 MG; Start 11/22/16 at 21:00 Diphenhydramine HCl (Benadryl) 25 mg Q6H PRN PO PRURITUS Last administered on 21:45; Admin Dose 25 MG; Start 11/22/16 at 13:00 Pantoprazole (Protonix Tab) 40 mg BID@,18 PO Last administered on 11/24/16 08:27; Admin Dose 40 MG; Start 11/22/16 at 18:00 Pregabalin (Lyrica) 50 mg BID PO Last administered on 11/24/16 08:35; Admin Dose 50 MG; Start 11/22/16 at 21:00 Phenol (Cepastat Lozenge) 1 lozenge Q1H PRN [place] SORE THROAT Last administered on 11/23/16t 18:29; Admin Dose 1 LOZENGE; Start 11/23/16 at 15:00 Ciprofloxacin (Cipro) 500 mg DAILY@06 PO ; Start 11/25/16 at 06:00 Warfarin Sodium (Coumadin) 2 mg ONCE@17 ONCE PO ; Start 11/24/16 at 17:00; Stop 11/24/16 at 17:01 Assessment/Plan Chief Complaint/Hosp Course 76 y/o female pmh HTN, HLD, s/p TAVR on coumadin given chronic clot on valve. Also with osteopenia. S/p RTKA 11/22/[address] Arriaza. Problems: (1) S/P TKR (total knee replacement) (2) S/P TAVR (transcatheter aortic valve replacement) (3) Mixed hyperlipidemia (4) Essential hypertension (5) Asymptomatic bacteriuria Additional Assessment/Plan A/P: Ortho #s/p R TKA -pain control per ortho -dispo per ortho, likely to be discharged to [facility] for PT Saturday GI #constipation -will add miralax to current regimen Cards #s/p TAVR -coumadin dosing per Dr. Arriaza so that he may managed post surgical risk as well #HLD -atorva #HTN -MTP ID #bacteruria -has been on cipro, likely adequately dosed periop. Will dc today KOFI TERRELL MD Nov 24, 2016 13:57
[2016-11-24] MEDS: POLYETHYLENE GLYCOL 17 GM PACKET PO SCH (15:04)
[2016-11-24] MEDS ORDERED: WARFARIN 2.5 MG TAB PO ONE (17:00)
[2016-11-24] MEDS ORDERED: WARFARIN 2 MG TAB PO ONE (17:00)
[2016-11-24] MEDS: ATORVASTATIN 20 MG TAB PO SCH (20:48)
[2016-11-24 21:01] VITALS: BP 116/55; RESP 20
[2016-11-24] MEDS: ZOLPIDEM 5 MG TAB PO PRN (22:09)
[2016-11-25] MEDS: ZOLPIDEM 5 MG TAB PO PRN ×2 (01:27→22:22)
[2016-11-25] MEDS ORDERED: CIPROFLOXACIN 500 MG TAB PO SCH (06:00)
[2016-11-25] MEDS: PANTOPRAZOLE (EC) 40 MG TAB PO SCH ×2 (06:02→17:47)
[2016-11-25] MEDS: traMADol 50 MG TAB PO SCH ×2 (06:04)
[2016-11-25] MEDS: [UNRECOGNIZED DRUG - OTHER] PO SCH ×2 (07:50→17:55)
[2016-11-25] MEDS: MINERAL SUPPLEMENT PO SCH ×2 (07:50→17:55)
[2016-11-25 08:01] VITALS: BP 153/69; RESP 20
[2016-11-25] MEDS: CELECOXIB 200 MG CAP PO SCH (08:47)
[2016-11-25] MEDS: DOCUSATE SODIUM 100 MG CAP PO SCH ×2 (08:47→20:19)
[2016-11-25] MEDS: PREGABALIN 25 MG CAP PO SCH ×2 (08:48→20:18)
[2016-11-25] MEDS: METOPROLOL (XL) 100 MG TAB PO SCH (08:48)
[2016-11-25] MEDS: POLYETHYLENE GLYCOL 17 GM PACKET PO SCH (08:48)
[2016-11-25 11:03] LABS: HEMATOCRIT 33.5 % (37.0-47.0); HEMOGLOBIN 10.7 g/dl (12.0-16.0)
[2016-11-25 11:16] LABS: INR 1.3; PROTIME 16.3 Sec (12.2-14.2); PT RATIO 1.3
[2016-11-25 11:28] LABS: CREATININE 1.09 mg/dl (0.44-1.00)
[2016-11-25 11:30] LABS: CALCIUM 8.2 mg/dl (8.4-10.2)
--- NOTE | 2016-11-25 11:38 | CONS ---
Date/Time of Note Date/Time of Note DATE: 11/25/16 TIME: 11:35 Consult Date/Type/Reason Admit Date/Time Nov 22, 2016 at 07:15 Initial Consult Date 11/22/2016 Type of Consultation: Medicine Reason for Consultation HLD, HTN, bacteruria, s/p TAVR Ordering Provider: LESIA ARRIAZA MD Subjective Patient discouraged that she is not doing as well as yesterday with PT. Is motivated. Has more pain in R knee today. Had BM. Denies fevers, chills, nausea , vomiting, abdominal pain, diarrhea, constipation, cp, sob, cough. Sore throat improved. Objective Vital Signs Date Time Temp Pulse Resp B/P Pulse Ox O2 Delivery O2 Flow Rate FiO2 11/25/16 08:01 97.9 67 20 153/69 96 11/23/16 05:00 Nasal Cannula 2.0 Intake and Output 11/24/16 11/24/16 11/25/16 15:00 23:00 07:00 Intake Total 920 ml 500 ml Output Total 400 ml 600 ml Balance 520 ml -100 ml Gen: NAD, laying in bed comfortably HEENT: OP clear, no scleral icterus. AT/NC Cards: rrr, nml s1/s2, no m/r/g Pulm: CTAB. No wheezes Abd: soft, nt/nd, +BS ext: no c/c/e Results/Medications Result Diagram: 11/25/16 1021 11/25/16 1021 Results 24 hrs Laboratory Tests Test 11/25/16 10:21 Anion Gap 15 Blood Urea Nitrogen 25 H Calcium Level 8.2 L Carbon Dioxide Level 25 Chloride Level 104 Creatinine 1.09 H Glucose Level 136 # Hematocrit 33.5 L Hemoglobin 10.7 L INR International Normalized Ratio 1.30 Potassium Level 4.0 Prothrombin Time 16.3 H Prothrombin Time Ratio 1.3 Sodium Level 140 Medications Current Medications Miscellaneous Information 1 ea NOTE XX ; Start 11/22/16 at 08:00; Stop 11/26/16 at 07:59 Atorvastatin Calcium (Lipitor) 20 mg HS PO Last administered on 11/24/16 20:48 ; Admin Dose 20 MG; Start 11/22/16 at 21:00 Metoprolol Succinate (Toprol Xl) 100 mg DAILY PO Last administered on 08:48; Admin Dose 100 MG; Start 11/23/16 at 09:00 Celecoxib (Celebrex) 200 mg DAILY PO Last administered on 11/25/16 08:47; Admin Dose 200 MG; Start 11/23/16 at 09:00 Tramadol HCl (Ultram) 50 mg Q6 PO Last administered on 11/25/16 06:04; Admin Dose 50 MG; Start 11/22/16 at 12:00; Stop 11/25/16 at 11:59 Oxycodone HCl (Roxicodone) 5 mg Q4H PRN PO PAIN LEVEL 1-3; Start 11/22/16 at 13 :00 Oxycodone HCl (Roxicodone) 10 mg Q4H PRN PO PAIN LEVEL 4-7 Last administered on 11/25/16 09:10; Admin Dose 10 MG; Start 11/22/16 at 13:00 Hydromorphone HCl (Dilaudid) 1 mg Q3H PRN IV PAIN LEVEL 8-10; Start 11/22/16 at 13:00 Ondansetron HCl (Zofran Inj) 4 mg Q6H PRN IV NAUSEA AND/OR VOMITING; Start at 13:00 Bisacodyl (Dulcolax Supp) 10 mg Q12H PRN [place] CONSTIPATION; Start 11/22/16 at 13: 00 Magnesium Hydroxide (Milk Of Mag) 30 ml BID PRN PO CONSTIPATION Last administered on 11/22/16 17:12; Admin Dose 30 ML; Start 11/22/16 at 13:00 Sodium Biphosphate/ Sodium Phosphate (Fleet Enema) 133 ml DAILY PRN [place] CONSTIPATION; Start 11/22/16 at 13:00 Docusate Sodium (Colace) 100 mg BID PO Last administered on 11/25/16 08:47; Admin Dose 100 MG; Start 11/22/16 at 21:00 Diphenhydramine HCl (Benadryl) 25 mg Q6H PRN PO PRURITUS Last administered on 21:45; Admin Dose 25 MG; Start 11/22/16 at 13:00 Pantoprazole (Protonix Tab) 40 mg BID@18 PO Last administered on 11/25/16 06:02; Admin Dose 40 MG; Start 11/22/16 at 18:00 Pregabalin (Lyrica) 50 mg BID PO Last administered on 11/25/16 08:48; Admin Dose 50 MG; Start 11/22/16 at 21:00 Phenol (Cepastat Lozenge) 1 lozenge Q1H PRN [place] SORE THROAT Last administered on 11/23/16 18:29; Admin Dose 1 LOZENGE; Start 11/23/16 at 15:00 Polyethylene Glycol (Miralax) 17 gm DAILY PO Last administered on 11/25/16 08: 48; Admin Dose 17 GM; Start 11/24/16 at 14:00 Assessment/Plan Chief Complaint/Hosp Course 76 y/o female pmh HTN, HLD, s/p TAVR on coumadin given chronic clot on valve. Also with osteopenia. S/p RTKA 11/22/[address] Arriaza. Problems: Additional Assessment/Plan #s/p R TKA -pain control per ortho -dispo per ortho, medically cleared for discharge to SNF GI #constipation-resolved -continue bowel regimen Cards #s/p TAVR -coumadin dosing per Dr. Arriaza so that he may manage post surgical risk as well #HLD -atorva #HTN -MTP ID #bacteruria-treated with cipro Dispo: medically cleared for discharge to SNF for rehab. KOFI TERRELL MD Nov 25, 2016 11:38
[2016-11-25] MEDS ORDERED: WARFARIN 2.5 MG TAB PO ONE (17:00)
--- NOTE | 2016-11-25 18:17 | PN ---
DATE: 11/25/2016 The patient is being seen for Dr. Whalen. She had a right total knee replacement on 11/22/2016. She has minimal pain. She is not able to lif t her leg off the bed, but she is able to maintain the leg in the air if it is lifted for her. Ther e is slight redness over the lateral side of her knee wound. THE PATIENT IS ALLERGIC TO PENICILLIN. She was put on Cipro which she was on before. VITAL SIGNS: Temperature 97.9, hemoglobin 10.7. Patient is being transferred to a convalescent facility tomorrow. Dictated By: SRINI RODRÍGUEZ/ANGELINA Conf#: [id number] DID#: [id number]
[2016-11-25] MEDS ORDERED: VITAMIN A & D 5 GM OINT PACKET TOP ONE (20:08)
[2016-11-25] MEDS: ATORVASTATIN 20 MG TAB PO SCH (20:19)
[2016-11-25 20:40] VITALS: BP 122/55; RESP 18
[2016-11-26 07:00] LABS: ADD SCAN DIFF NO
[2016-11-26] MEDS: PANTOPRAZOLE (EC) 40 MG TAB PO SCH ×2 (07:01→18:00)
[2016-11-26 07:11] LABS: BASOPHIL # 0.1 10^3/ul (0.0-0.1); BASOPHILS % 0.8 % (0.0-2.0); EOSINOPHILS # 0.3 10^3/ul (0.0-0.5); EOSINOPHILS % 3.6 % (0.0-7.0); HEMATOCRIT 32.7 % (37.0-47.0); HEMOGLOBIN 10.5 g/dl (12.0-16.0); LYMPHOCYTES # 1.5 10^3/ul (0.8-2.9); LYMPHOCYTES % 15.6 % (15.0-51.0); MEAN CORPUSCULAR HEMOGLOBIN 31.3 pg (29.0-33.0); MEAN CORPUSCULAR HGB CONC 32.1 g/dl (32.0-37.0); MEAN CORPUSCULAR VOLUME 97.6 fl (82.0-101.0); MEAN PLATELET VOLUME 11.7 fl (7.4-10.4); MONOCYTE # 1.1 10^3/ul (0.3-0.9); MONOCYTES % 11.4 % (0.0-11.0); NEUTROPHIL # 6.4 10^3/ul (1.6-7.5); NEUTROPHILS % 68.1 % (39.0-77.0); PLATELET COUNT 152 10^3/UL (140-415); RED BLOOD COUNT 3.35 10^6/ul (4.20-5.40); RED CELL DISTRIBUTION WIDTH 14.5 % (11.5-14.5); WHITE BLOOD COUNT 9.4 10^3/ul (4.8-10.8)
[2016-11-26 07:17] LABS: INR 1.31; PROTIME 16.4 Sec (12.2-14.2); PT RATIO 1.3
[2016-11-26 07:21] LABS: POTASSIUM 4.4 mmol/L (3.5-5.1)
[2016-11-26 07:24] LABS: CALCIUM 8.2 mg/dl (8.4-10.2); CREATININE 0.96 mg/dl (0.44-1.00)
[2016-11-26 07:36] VITALS: BP 156/67; RESP 18
--- NOTE | 2016-11-26 08:41 | CONS ---
Date/Time of Note Date/Time of Note DATE: 11/26/16 TIME: 08:37 Assessment/Plan Assessment/Plan Additional Assessment/Plan 1. Doing well post op right knee pain 2. Mild erythema nathan wound, rev with ortho, to start abx 3. A valve replacement, to cont coumadin. 4. Can DC pending PT and PT follow up Consultation Date/Type/Reason Admit Date/Time Nov 22, 2016 at 07:15 Type of Consultation: Medicine Referring Provider: LESIA ARRIAZA MD Detailed Summary Respiratory: No cough, No shortness of breath Cardiovascular: No chest pain Gastrointestinal: no complaints Genitourinary: no complaints Musculoskeletal: bone/joint pain (mild right knee pain) Exam/Review of Systems Vital Signs Vitals Vital Signs Date Time Temp Pulse Resp B/P Pulse Ox O2 Delivery O2 Flow Rate FiO2 11/26/16 07:36 98.5 80 18 156/67 98 11/23/16 05:00 Nasal Cannula 2.0 Intake and Output 11/25/16 11/25/16 11/26/16 15:00 23:00 07:00 Intake Total 1100 ml 420 ml Balance 1100 ml 420 ml Exam Neck: No jvd Respiratory: clear to auscultation Cardiovascular: regular rate and rhythm Gastrointestinal: soft Extremities: No edema (min erythema nathan wound) Results Result Diagram: 11/26/16 0638 11/26/16 0638 Results 24 hrs Laboratory Tests Test 11/25/16 10:21 11/26/16 06:38 Anion Gap 15 13 Blood Urea Nitrogen 25 H 18 Calcium Level 8.2 L 8.2 L Carbon Dioxide Level 25 25 Chloride Level 104 107 Creatinine 1.09 H 0.96 Glucose Level 136 # 90 # Hematocrit 33.5 L 32.7 L Hemoglobin 10.7 L 10.5 L INR International Normalized Ratio 1.30 1.31 Potassium Level 4.0 4.4 Prothrombin Time 16.3 H 16.4 H Prothrombin Time Ratio 1.3 1.3 Sodium Level 140 141 Basophils # 0.1 Basophils % 0.8 Eosinophils # 0.3 Eosinophils % 3.6 Lymphocytes # 1.5 Lymphocytes % 15.6 Mean Corpuscular Hemoglobin 31.3 Mean Corpuscular Hemoglobin Concent 32.1 Mean Corpuscular Volume 97.6 Mean Platelet Volume 11.7 #H Monocytes # 1.1 H Monocytes % 11.4 H Neutrophils # 6.4 Neutrophils % 68.1 Nucleated Red Blood Cells # 0.0 Nucleated Red Blood Cells % 0.0 Platelet Count 152 Red Blood Count 3.35 #L Red Cell Distribution Width 14.5 White Blood Count 9.4 Medications Medications Current Medications Atorvastatin Calcium (Lipitor) 20 mg HS PO Last administered on 11/25/16 20:19 ; Admin Dose 20 MG; Start 11/22/16 at 21:00 Metoprolol Succinate (Toprol Xl) 100 mg DAILY PO Last administered on 08:48; Admin Dose 100 MG; Start 11/23/16 at 09:00 Celecoxib (Celebrex) 200 mg DAILY PO Last administered on 11/25/16 08:47; Admin Dose 200 MG; Start 11/23/16 at 09:00 Oxycodone HCl (Roxicodone) 5 mg Q4H PRN PO PAIN LEVEL 1-3; Start 11/22/16 at 13 :00 Oxycodone HCl (Roxicodone) 10 mg Q4H PRN PO PAIN LEVEL 4-7 Last administered on 11/25/16 09:10; Admin Dose 10 MG; Start 11/22/16 at 13:00 Hydromorphone HCl (Dilaudid) 1 mg Q3H PRN IV PAIN LEVEL 8-10; Start 11/22/16 at 13:00 Ondansetron HCl (Zofran Inj) 4 mg Q6H PRN IV NAUSEA AND/OR VOMITING; Start at 13:00 Bisacodyl (Dulcolax Supp) 10 mg Q12H PRN [place] CONSTIPATION; Start 11/22/16 at 13: 00 Magnesium Hydroxide (Milk Of Mag) 30 ml BID PRN PO CONSTIPATION Last administered on 11/22/16 17:12; Admin Dose 30 ML; Start 11/22/16 at 13:00 Sodium Biphosphate/ Sodium Phosphate (Fleet Enema) 133 ml DAILY PRN [place] CONSTIPATION; Start 11/22/16 at 13:00 Docusate Sodium (Colace) 100 mg BID PO Last administered on 11/25/16 20:19; Admin Dose 100 MG; Start 11/22/16 at 21:00 Diphenhydramine HCl (Benadryl) 25 mg Q6H PRN PO PRURITUS Last administered on 21:45; Admin Dose 25 MG; Start 11/22/16 at 13:00 Pantoprazole (Protonix Tab) 40 mg BID@06,18 PO Last administered on 11/26/16 07:01; Admin Dose 40 MG; Start 11/22/16 at 18:00 Pregabalin (Lyrica) 50 mg BID PO Last administered on 11/25/16 20:18; Admin Dose 50 MG; Start 11/22/16 at 21:00 Phenol (Cepastat Lozenge) 1 lozenge Q1H PRN [place] SORE THROAT Last administered on 11/23/16 18:29; Admin Dose 1 LOZENGE; Start 11/23/16 at 15:00 Polyethylene Glycol (Miralax) 17 gm DAILY PO Last administered on 11/25/16 08: 48; Admin Dose 17 GM; Start 11/24/16 at 14:00 Ciprofloxacin (Cipro) 500 mg DAILY@06 PO ; Start 11/26/16 at 17:00 CUCO ACEVEDO MD Nov 26, 2016 08:41
--- NOTE | 2016-11-26 08:53 | PN ---
Date/Time of Note Date/Time of Note DATE: 11/26/16 TIME: 08:51 Assessment/Plan Lines/Catheters IV Catheter Type (from Nrsg): Saline Lock Drake in Place (from Nrsg): No Assessment/Plan Assessment/Plan Stable POD #4, s/p right TKA -pain meds -SCDs -coumadin 3mg today prior to transfer -OOB with PT -will switch cipro to Bactrim and Doxycycline for better coverage -dressing changed -stable for transfer to [facility] today -follow up in the office on 12/03/16 Subjective 24 Hr Interval Summary Doing well. No acute overnight events. Mild pain with bending the knee. Denies f /c. Making progressing with PT. Redness improved. Currently on cipro but will switch for better gram + coverage. Will plan to transfer to [facility] today. Exam/Review of Systems Vital Signs Vitals Vital Signs Date Time Temp Pulse Resp B/P Pulse Ox O2 Delivery O2 Flow Rate FiO2 11/26/16 07:36 98.5 80 18 156/67 98 11/23/16 05:00 Nasal Cannula 2.0 Intake and Output 11/25/16 11/25/16 11/26/16 15:00 23:00 07:00 Intake Total 1100 ml 420 ml Balance 1100 ml 420 ml Exam Free Text/Dictation Dressing dry Incision clean, dry, and intact without redness or drainage Thigh soft 5/5 Quadriceps, Tibialis Anterior, EHL, Gastroc, Soleus, Peroneals Normal sensation Palpable DT/PT, CR <2 sec No distal edema Results Result Diagram: 11/26/16 0638 11/26/16 0638 YULIYA CONCEPCION PA-C Nov 26, 2016 08:53
[2016-11-26] MEDS ORDERED: FUROSEMIDE 20 MG TAB PO SCH (09:00)
[2016-11-26] MEDS ORDERED: WARFARIN 3 MG TAB PO ONE (09:00)
[2016-11-26] MEDS: CELECOXIB 200 MG CAP PO SCH (09:21)
[2016-11-26] MEDS: PREGABALIN 25 MG CAP PO SCH (09:21)
[2016-11-26] MEDS: DOCUSATE SODIUM 100 MG CAP PO SCH (09:22)
[2016-11-26] MEDS: METOPROLOL (XL) 100 MG TAB PO SCH (09:22)
[2016-11-26] MEDS: POLYETHYLENE GLYCOL 17 GM PACKET PO SCH (09:23)
[2016-11-26] MEDS: [UNRECOGNIZED DRUG - OTHER] PO SCH ×2 (09:23→17:55)
[2016-11-26] MEDS: MINERAL SUPPLEMENT PO SCH ×2 (09:23→17:55)
[2016-11-26] MEDS ORDERED: CEPH500C PO (10:46)
[2016-11-26] MEDS ORDERED: TRAM50TA2 PO (15:10)
[2016-11-26] MEDS ORDERED: CIPROFLOXACIN 500 MG TAB PO SCH (17:00)
--- NOTE | 2016-11-27 01:17 | DS ---
DATE OF ADMISSION: 11/22/2016 DATE OF DISCHARGE: 11/26/2016 CONDITION ON DISCHARGE: Stable. ADMITTING DIAGNOSIS: Left knee osteoarthritis. DISCHARGE DIAGNOSIS: Status post left total knee arthroplasty. PROCEDURE PERFORMED: Left total knee arthroplasty. HOSPITAL COURSE: This is a 81-year-old female who presented to clinic initially complaining of left knee pain. X-rays were obtained and demonstrated advanced osteoarthritis of the left knee, and it was thought she would benefit from a left total knee arthroplasty. On 11/22/2016, the patient was admitted and taken to the operating room, where she underwent a left total knee arthroplasty. There were no intraoperative complications. The patient tolerated procedure well. She was taken to the recovery room in stable condition. Pain was well controlled with oral pain medication. She was started on Coumadin and SCDs for DVT prophylaxis. She remained hemodynamically stable and neurovascularly intact throughout her hospital stay. She began physical therapy on postoperative day 1 and was deemed stable for transfer on postoperative day 4. Prior to transfer, the incision was inspected and noted to be clean, dry and intact. Dressing changes were done prior to patient going to [facility]. LABORATORY ANALYSIS: Hemoglobin 10.5, hematocrit 32.7. Chemistry panel was within normal limits. Additionally, INR upon discharge is 1.31. DISCHARGE MEDICATIONS: 1. [place] 7.5/325 mg. 2. Tramadol 50 mg. 3. Warfarin 2 mg. 4. Warfarin 1mg. 5. Bactrim double strength. 6. Keflex 500 mg. Additionally, the patient is to resume all of her normal home medications. DISCHARGE INSTRUCTIONS: The patient will be transferred to [facility] in stable condition. She is to resume a normal diet. Activity includes weightbearing as tolerated on the left lower extremity. She will begin physical therapy at [facility]. She will be transferred with the medication noted above and was advised to resume all of her normal home medication. The patient is to call the office or return to the emergency room for any concerns including increased redness, swelling, drainage, fever or any concerns regarding the operation or site of incision. FOLLOWUP: The patient to follow up in the office with Dr. Whalen on 12/03/2016. Dictated By: YULIYA JACINTO/ANGELINA Conf#: [id number] [facility]#: [id number] MTDD
== END 2016-11-26 18:00 | DRG 470 ==
LOC: REC 07:15 → MS1 14:50
PROVIDERS: ADMIT Orthopaedic Surgery; ATTEND Orthopaedic Surgery
PROC: 0SRC0J9 Replacement of Right Knee Joint with Synthetic Substitute, Cemented, Open Approach (ICD-10-PCS; principal; 2016-11-22 10:00)
DX: M17.11 Unilateral primary osteoarthritis, right knee (principal); I10 Essential (primary) hypertension; E78.5 Hyperlipidemia, unspecified; K59.00 Constipation, unspecified; G89.18 Other acute postprocedural pain; K21.9 Gastro-esophageal reflux disease without esophagitis; I25.10 Atherosclerotic heart disease of native coronary artery without angina pectoris; Z79.01 Long term (current) use of anticoagulants; Z79.82 Long term (current) use of aspirin; Z88.0 Allergy status to penicillin; Z95.2 Presence of prosthetic heart valve; Z90.49 Acquired absence of other specified parts of digestive tract; Z90.710 Acquired absence of both cervix and uterus; Z87.891 Personal history of nicotine dependence
CPT/HCPCS: 73560; 80048; 81001; 81003; 84132; 85014; 85018; 85025; 85610; 85730; 86850; 86900; 86901; 86920; 87081; 87086; 88304; 88311; 97116; 97163; 97167; 97530; Z7610; C1776; C9290; J0131; J0171; J0360; J0690; J0735; J1100; J1885; J2001; J2250; J2274; J2405; J2710; J3010; J3370; J7120

== ENCOUNTER → 2016-12-03 | Outpatient (CLI) | payer MEDICARE, BC ==
[2016-11-21 10:10] VITALS: Ht 152.4 cm; Wt 79.5 kg
[~2016-12-03] VITALS: Ht 152.4 cm; Wt 79.5 kg
[~2016-12-03] MED LIST changes: +CEPH500C PO; -GABA100C14 PO; -RIVA20TA PO; +preser vision PO
--- NOTE | 2016-12-03 13:49 | HKNOTE ---
DATE OF SERVICE: 12/03/2016 INTERVAL HISTORY: The patient presents today for her first postoperative evaluation. She is now 10 days status post right total knee arthroplasty. She is at [facility]. She is doing satisfactory overall. She is not progressing with physical therapy as much as we would like. She is on Coumadin for DVT prophylaxis. She denies any fevers, chills. Denies any pus or drainage. Presents today for her first postoperative evaluation. PHYSICAL EXAMINATION: The patient alert and oriented x4, and in no acute distress. Exam of the right knee demonstrates the incision to be clean, dry, and intact. Lee are in place. Range of motion is 0 to 90 degrees. Varus and valgus forces are stable. There is no erythema or warmth noted. Compartments are soft. Homans sign is negative. She is neurovascularly intact distally. IMAGING: X-rays done at [facility] demonstrate good anatomic alignment with no fracture or dislocation identified. ASSESSMENT: Ten days status post right total knee arthroplasty. PLAN: The lee were removed today, and Steri-Strips were applied. She is to continue Coumadin for DVT prophylaxis as dosed by us based off INR checks. She is to begin a more aggressive physical therapy program focusing on weightbearing, as well as improving her range of motion. If she develops any erythema, warmth, or worsening swelling, she will call the office, otherwise, we will see her back in 4 weeks for repeat evaluation. Dictated By: YULIYA KHALIL for LESIA JACINTO/ANGELINA Conf#: [id number] DID#: [id number] KADEEM
== END | disposition home or self-care (01) ==
LOC: HKI 09:48
PROVIDERS: ATTEND Orthopaedic Surgery
DX: Z47.1 Aftercare following joint replacement surgery (principal); Z96.651 Presence of right artificial knee joint

== ENCOUNTER → 2016-12-31 | Outpatient (CLI) | payer MEDICARE, BC | END | disposition home or self-care (01) | LOC: HKI 10:13 | PROVIDERS: ATTEND Orthopaedic Surgery | DX: Z47.1 Aftercare following joint replacement surgery (principal); Z96.651 Presence of right artificial knee joint; M17.11 Unilateral primary osteoarthritis, right knee ==

== ENCOUNTER 2017-02-08 06:58 | Emergency (ER) | payer MEDICARE, BC ==
[~2017-02-08] VITALS: Ht 160 cm; Wt 78.0 kg
[2017-02-08 07:01] VITALS: Ht 160 cm; Wt 78.0 kg
--- NOTE | 2017-02-08 07:16 | ERD ---
ER Documentation Chief Complaint Date/Time DATE: 02/08/17 TIME: 07:13 [facility] , abrsions over nose HPI Patient is a 81-year-old female who presents with mechanical slip and fall while trying to get up from the toilet. She reports that she reached for the sink to stabilize herself but missed the sink and fell to the ground. She struck her nose on the floor. She denies loss of consciousness. She complains of mild headache and neck pain. She denies extremity injury, chest or back pain. She reports history of valve replacement and is on Coumadin. ROS All systems reviewed and are negative except as per history of present illness. Medications Home Meds Active Scripts Cephalexin* (Keflex*) 500 Mg Capsule, 500 MG PO QID for 7 Days, CAP Prov:SHONDA JEFFRIES MD 02/08/17 Tramadol HCl (Tramadol HCl) 50 Mg Tablet, 50 MG PO Q6 for 30 Days, #60 TAB Prov:YULIYA CONCEPCION PA-C 11/26/16 Cephalexin* (Cephalexin*) 500 Mg Capsule, 500 MG PO TID for 7 Days, #21 CAP Prov:YULIYA CONCEPCION PA-C 11/26/16 Oxymetazoline Hcl* (Afrin [place]*) 0.05% - 15 Ml [place], 2 SPRAYS NASAL BID Y for nose bleed, #1 EA to each nostril Prov:ONI DINERO MD 08/30/15 Prednisone* (Prednisone*) 10 Mg Tab, 10 MG PO BID, #10 Prov:CUCO ACEVEDO MD 07/28/15 Potassium Chloride* (Klor-Con*) 20 Meq Tabsr, 20 MEQ PO DAILY, #30 TAB Prov:CUCO ACEVEDO MD 07/28/15 Metoprolol Succinate* (Toprol XL*) 100 Mg Tabsr, 100 MG PO DAILY, #30 TAB Prov:CUCO ACEVEDO MD 07/28/15 Furosemide* (Lasix*) 40 Mg Tab, 40 MG PO DAILY@06, #30 TAB Prov:CUCO ACEVEDO MD 07/28/15 Amlodipine Besylate* (Norvasc*) 2.5 Mg Tab, 2.5 MG PO DAILY, #30 TAB Prov:CUCO ACEVEDO MD 07/28/15 Reported Medications [preser vision] No Conflict Check, 1 TAB PO BID 11/23/16 Ketorolac Tromethamine Oph (Ketorolac Tromethamine Oph) 0.5%-5 Ml Opht Drops, 1 DROP BOTH EYES QID, EA 07/23/15 Calcium Carbonate* (Os-Thomas 500*) 1 Tab Tablet, 1 TAB PO DAILY, TAB 07/21/15 Multivitamins* (Once Daily*) 1 Tab Tablet, 1 TAB PO DAILY, TAB 07/21/15 Omeprazole* (Omeprazole*) 20 Mg Capsule.dr, 20 MG PO DAILY, CAP 07/21/15 Tramadol HCl (Tramadol HCl) 50 Mg Tab, 50 MG PO TID Y for PAIN, TAB 07/21/15 Atorvastatin Calcium* (Atorvastatin Calcium*) 20 Mg Tablet, 20 MG PO HS, TAB 07/21/15 Allergies Allergies: Coded Allergies: Penicillins (Verified Allergy, Unknown, 11/21/16) codeine (Verified Allergy, Unknown, 11/21/16) PMhx/Soc Past medical history: Hypertension Past surgical history: Unknown cardiac valve replacement, right knee surgery, cholecystectomy, breast biopsy Social history: Denies tobacco or alcohol History of Surgery: Yes (hysterectomy, gall bladder, aortic valve replacement) Anesthesia Reaction: Yes (loss of memory on past surgery) Hx Neurological Disorder: No Hx Respiratory Disorders: No Hx Cardiac Disorders: Yes (CAD, HTN, high cholest, aortic valve replacement) Hx Psychiatric Problems: No Hx Miscellaneous Medical Probl: No Hx Alcohol Use: No Hx Substance Use: No Hx Tobacco Use: No Smoking Status: Never smoker FmHx Family History: No coronary disease, No diabetes Physical Exam Vitals Vital Signs Date Time Temp Pulse Resp B/P Pulse Ox O2 Delivery O2 Flow Rate FiO2 02/08/17 13:58 97.2 85 16 122/56 100 Room Air 02/08/17 12:14 97.7 85 18 139/68 98 Room Air 02/08/17 07:01 98.1 84 20 151/70 99 Physical Exam Const: Alert, no acute distress Head: Atraumatic Eyes: Normal Conjunctiva, no pallor, no icterus, no subconjunctival hemorrhage ENT: Normal External ears, mouth. Ecchymosis and small superficial laceration to nasal bridge. No septal hematoma. Neck: Full range of motion..~ No meningismus. Mild midline tenderness Resp: Clear to auscultation bilaterally, no wheezes, rales Cardio: Regular rate and rhythm, 2+ systolic murmur, chest wall nontender Abd: Soft, non tender, non distended. Normal bowel sounds Skin: No petechiae or rashes Back: No midline or flank tenderness Ext: No cyanosis, or edema, no bony point tenderness or pain with ranging of major joints. Neur: Awake and alert, cranial nerves II through XII intact bilaterally, strength and sensation full in 4 extremities. Psych: Normal Mood and Affect Result Diagram: 02/08/17 0806 02/08/17 0806 Results 24 hrs Laboratory Tests Test 02/08/17 08:06 02/08/17 12:50 White Blood Count 6.110^3/ul Red Blood Count 3.6910^6/ul Hemoglobin 11.6g/dl Hematocrit 35.9% Mean Corpuscular Volume 97.3fl Mean Corpuscular Hemoglobin 31.4pg Mean Corpuscular Hemoglobin Concent 32.3g/dl Red Cell Distribution Width 14.0% Platelet Count 85022^3/UL Mean Platelet Volume 12.0fl Neutrophils % 56.1% Lymphocytes % 25.6% Monocytes % 12.9% Eosinophils % 4.1% Basophils % 1.0% Nucleated Red Blood Cells % 0.0/100WBC Neutrophils # 3.510^3/ul Lymphocytes # 1.610^3/ul Monocytes # 0.810^3/ul Eosinophils # 0.310^3/ul Basophils # 0.110^3/ul Nucleated Red Blood Cells # 0.010^3/ul Prothrombin Time 23.3Sec Prothrombin Time Ratio 1.8 INR International Normalized Ratio 2.05 Sodium Level 142mmol/L Potassium Level 3.7mmol/L Chloride Level 104mmol/L Carbon Dioxide Level 29mmol/L Anion Gap 13 Blood Urea Nitrogen 17mg/dl Creatinine 1.08mg/dl Glucose Level 93mg/dl Calcium Level 9.1mg/dl Troponin I < 0.012ng/ml Urine Color LT. YELLOW Urine Clarity CLEAR Urine pH 8.0 Urine Specific [place] 1.015 Urine Ketones NEGATIVE Urine Nitrite NEGATIVE Urine Bilirubin NEGATIVE Urine Urobilinogen 0.2 E.U./dL Urine Leukocyte Esterase 2+ Urine Microscopic RBC 5-10/HPF Urine Microscopic WBC >50/HPF Urine Epithelial Cells FEW Urine Bacteria MODERATE Urine Hemoglobin TRACE Urine Glucose NEGATIVE% Urine Total Protein NEGATIVE Current Medications Medications (Trade) Dose Ordered Sig/Norris Route PRN Reason Start Time Stop Time Status Last Admin Dose Admin Diphtheria/ Tetanus/Acell Pertussis (Adacel) 0.5 ml ONCE ONCE IM* 02/08/17 07:30 02/08/17 07:31 DC 02/08/17 07:25 Tramadol HCl (Ultram) 50 mg ONCE ONCE PO 02/08/17 07:30 02/08/17 07:31 DC 02/08/17 07:24 Procedures/MDM Time 1004: I spoke with Dr. Acevedo, the patient's primary physician, who is aware of the patient's findings and recommends holding Coumadin for 5 days. I discussed this with the patient, and the patient is now changing her story and states that she is not sure why she fell. She states that things looked black. She does remember her hands slipping on the sink, as well as her nose hitting the floor, but she would like to be evaluated for possible fainting episode. EKG read by me: Time 1029, rate 67 Rhythm: Normal sinus [place]: Normal Intervals: Normal ST-T waves: no ischemic changes Ectopy: No Q-waves: No Impression: Left atrial enlargement, no evidence of ischemia or arrhythmia MDM: Patient is a 81-year-old female who presents with fall in the bathroom with nasal trauma. CT head and C-spine are unremarkable, although there are multiple chronic changes in the cervical spine. Patient is able to range her neck normally without significant pain and there is no neurologic deficit. The patient initially described a mechanical fall, and there is no loss of consciousness. The patient later questioned this assessment and suggested that she may have had a presyncopal episode. EKG and labs are unremarkable except for the discovery of urinary tract infection. Patient has normal vital signs and is currently asymptomatic except for nasal pain. There are no signs of sepsis. I believe that the patient may have had loss of balance related to underlying urinary tract infection, but I am not concerned for cardiac arrhythmia. Patient will be discharged with prescription for Keflex for UTI, is advised to hold her Coumadin as discussed with Dr. Acevedo, not to drive for at least 48 hours, to follow-up with her PMD next week, and to return to the ER for any new or worsening symptoms. Departure Diagnosis: Primary Impression: Fall with significant injury Encounter type: initial encounter Qualified Code: W19.XXXA - Fall with significant injury, initial encounter Additional Impressions: Nasal bone fracture Encounter type: initial encounter Fracture type: closed Qualified Code: S02.2XXA - Closed fracture of nasal bone, initial encounter Urinary tract infection Indwelling urinary catheter type: unspecified Encounter type: initial encounter Condition: SHONDA Cox MD February 08, 2017 07:16
[2017-02-08] MEDS ORDERED: traMADol 50 MG TAB PO ONE (07:30)
[2017-02-08] MEDS ORDERED: DIPHTH/TET/ACEL PERTUSS (ADULT) 0.5 ML VIAL IM* ONE (07:30)
--- NOTE | 2017-02-08 08:12 | RADRPT ---
PROCEDURE: CT Cervical Spine. CLINICAL INDICATION: Trauma TECHNIQUE: Helical CT scanning which forms the basis for coronal and sagittal reformatted images. All CT scans at this facility use dose modulation, iterative reconstruction, and/or weight-based do sing when appropriate to reduce radiation dose to as low as reasonably achievable. The CTDIvol is 2 2.16 mGy and the DLP is 444.39 mGycm. One or more of the following dose reduction techniques were us ed: automated exposure control, adjustment of the mA and/or kV according to patient size, or use of iterative reconstruction technique. COMPARISON: None. FINDINGS: There are degenerative changes throughout the cervical spine with osteophytes and minor endplate irr egularities. Grade 1 retrolisthesis is seen at C3-4 and C5-6 and grade 1 anterolisthesis is seen an d C4-5 and C7-T1. No definite fracture is seen. C2-3: Mild diffuse central disk protrusion. No marked foraminal narrowing. C3-4: Moderate diffuse central protrusion without extrusion and slight bilateral foraminal narrowin g. C4-5: Moderate diffuse central disk protrusion with fairly tight bilateral foraminal narrowing. C5-6: Central and right paracentral disk protrusion with narrowing of the right lateral recess and right greater than left foraminal narrowing. A component of lateral disk extrusion is not excluded. C6-7: Broad-based disk protrusion without marked foraminal narrowing. C7-T1: Mild central bulge. IMPRESSION: Degenerative change and minor listheses. No definite acute fracture. Multilevel disk pathology as above. Follow-up MRI may be obtained if indicated clinically. RPTAT: [facility] Physician [place] Date Time Electronically viewed and signed by Physician [place] on 02/08/2017 08:12 LE/
--- NOTE | 2017-02-08 08:15 | RADRPT ---
PROCEDURE: CT Brain without contrast. CLINICAL INDICATION: Trauma TECHNIQUE: Axial images from the skull base through the vertex without IV contrast. Multiplanar r eformatted images were made. Images were reviewed on a PACS workstation. The CTDIvol is 40.46 mGy and the DLP is 720.23 mGycm. One or more of the following dose reduction techniques were used: auto mated exposure control, adjustment of the mA and/or kV according to patient size, or use of iterativ e reconstruction technique. COMPARISON: None. FINDINGS: There is atrophy and chronic microvascular ischemic change. There is no evidence for acute territor ial infarction or intracranial hemorrhage. No mass or midline shift is seen. No intra or extra-axi al fluid collection is seen. The visualized paranasal sinuses and mastoids are clear. IMPRESSION: Atrophy and chronic microvascular ischemic changes. No definite acute abnormality. RPTAT: [facility] Physician [place] Date Time Electronically viewed and signed by Azul Garcia Physician on 02/08/2017 08:15 GEOVANNI/
--- NOTE | 2017-02-08 08:39 | RADRPT ---
PROCEDURE: XR Nasal Bones. CLINICAL INDICATION: Trauma. Pain. TECHNIQUE: 3 views of the nasal bone are available for review. COMPARISON: No prior studies are available for comparison. FINDINGS: There is a bones are remarkable for a nondisplaced fracture of the tip of the nasal bone.. No sinus air-fluid collection is seen. The soft tissues are unremarkable. IMPRESSION: 1. Nondisplaced fracture of the tip of the nasal bones. RPTAT: [facility] Physician [place] Date Time Electronically viewed and signed by Lefty Perez Physician on 02/08/2017 08:39 /
[2017-02-08 08:44] LABS: INR 2.05; PROTIME 23.3 Sec (12.2-14.2); PT RATIO 1.8
--- NOTE | 2017-02-08 10:39 | RADRPT ---
PROCEDURE: Chest Radiograph. CLINICAL INDICATION: Syncope TECHNIQUE: Single frontal chest radiograph. COMPARISON: Chest radiograph 01/11/2016 FINDINGS: Heart size is within normal limits. Atherosclerotic calcifications are present. Lung volumes are d ecreased there is mild basilar atelectasis. No infiltrate or effusion is seen. Hiatal hernia is not well appreciated on the current study. The bones are intact. IMPRESSION: 1. Mild basilar atelectasis. 2. No evidence of acute cardiopulmonary disease. 3. Atherosclerotic vascular disease. RPTAT: KK .Bart Nguyen MD, MD Date Time Electronically viewed and signed by .Bart Nguyen MD, on 02/08/2017 10:38 .B/
[2017-02-08 11:28] LABS: ADD SCAN DIFF NO
[2017-02-08 11:30] LABS: BASOPHIL # 0.1 10^3/ul (0.0-0.1); EOSINOPHILS # 0.3 10^3/ul (0.0-0.5); EOSINOPHILS % 4.1 % (0.0-7.0); HEMATOCRIT 35.9 % (37.0-47.0); HEMOGLOBIN 11.6 g/dl (12.0-16.0); LYMPHOCYTES # 1.6 10^3/ul (0.8-2.9); LYMPHOCYTES % 25.6 % (15.0-51.0); MEAN CORPUSCULAR HEMOGLOBIN 31.4 pg (29.0-33.0); MEAN CORPUSCULAR HGB CONC 32.3 g/dl (32.0-37.0); MEAN CORPUSCULAR VOLUME 97.3 fl (82.0-101.0); MONOCYTE # 0.8 10^3/ul (0.3-0.9); MONOCYTES % 12.9 % (0.0-11.0); NEUTROPHIL # 3.5 10^3/ul (1.6-7.5); NEUTROPHILS % 56.1 % (39.0-77.0); PLATELET COUNT 167 10^3/UL (140-415); RED BLOOD COUNT 3.69 10^6/ul (4.20-5.40); WHITE BLOOD COUNT 6.1 10^3/ul (4.8-10.8)
[2017-02-08 11:33] LABS: CHLORIDE 104 mmol/L (97-110); POTASSIUM 3.7 mmol/L (3.5-5.1); SODIUM 142 mmol/L (135-144)
[2017-02-08 11:36] LABS: ANION GAP 13 (8-16); CARBON DIOXIDE 29 mmol/L (21-31); CREATININE 1.08 mg/dl (0.44-1.00)
[2017-02-08 11:37] LABS: BLOOD UREA NITROGEN 17 mg/dl (7-20); CALCIUM 9.1 mg/dl (8.4-10.2); GLUCOSE 93 mg/dl (70-220)
[2017-02-08 11:56] LABS: TROPONIN-I < 0.012 ng/ml (0.00-0.12)
[2017-02-08 13:13] LABS: ADD UMIC YES; URINE BILIRUBIN (Dip) NEGATIVE (NEGATIVE); URINE BLOOD (Dip) TRACE (NEGATIVE); URINE COLOR LT. YELLOW (YELLOW); URINE GLUCOSE (Dip) NEGATIVE (NEGATIVE); URINE KETONES (Dip) NEGATIVE (NEGATIVE); URINE LEUKOCYTE ESTERASE (Dip) 2+ (NEGATIVE); URINE NITRITE (Dip) NEGATIVE (NEGATIVE); URINE TOTAL PROTEIN (Dip) NEGATIVE (NEGATIVE); URINE UROBILINOGEN (Dip) 0.2 E.U./dL (0.1-1.0)
[2017-02-08 13:24] LABS: BACTERIA,URINE MODERATE
[2017-02-08] MEDS ORDERED: CEPH-443 PO (13:34)
[2017-02-08 13:58] VITALS: BP 122/56; PULSE 85; RESP 16; TEMP 97.2
== END 2017-02-08 14:05 | disposition home or self-care (01) ==
LOC: E/R 06:58
DX: S02.2XXA Fracture of nasal bones, initial encounter for closed fracture (principal); N39.0 Urinary tract infection, site not specified; I10 Essential (primary) hypertension; I25.10 Atherosclerotic heart disease of native coronary artery without angina pectoris; W01.0XXA Fall on same level from slipping, tripping and stumbling without subsequent striking against object, initial encounter; Y92.9 Unspecified place or not applicable; Z79.01 Long term (current) use of anticoagulants
CPT/HCPCS: 70160; 70450; 71010; 72125; 80048; 81001; 81003; 84484; 85025; 85610; 90471; 90715; 93005

== ENCOUNTER → 2017-02-13 | Outpatient (CLI) | payer MEDICARE, BC ==
[~2017-02-13] MED LIST changes: +CEPH-443 PO
--- NOTE | 2017-02-13 11:25 | RADRPT ---
PROCEDURE: XR right knee. CLINICAL INDICATION: Knee pain. TECHNIQUE: AP weightbearing, lateral weightbearing and sunrise views are available for review. COMPARISON: 11/22/2016 FINDINGS: There is a total knee replacement. There is no evidence of loosening of the prosthesis. There is no evidence of hardware failure. The osseous structures are normal in mineralization, architecture and alignment No acute fracture or dislocation is seen.No osseous lesions are identified. The soft tiss ues are unremarkable . there is arterial vascular calcification. IMPRESSION: Unremarkable total knee replacement. RPTAT: HGDB .Alber Flores MD, Date Time Electronically viewed and signed by .Alber Flores MD, on 02/13/2017 11:24 .B/
--- NOTE | 2017-02-13 12:23 | RADRPT ---
PROCEDURE: XR pelvis/right hip. CLINICAL INDICATION: Hip pain TECHNIQUE: AP pelvis/AP and lateral right hip views performed COMPARISON: No prior studies are available for comparison. FINDINGS: There is a right femoral arterial stent. There is moderate bilateral hip osteoarthrosis. This is associated with joint space narrowing, subch ondral sclerosis and osteophytosis. There is diffuse osteopenia. No fractures or osseous lesions a re identified. The soft tissues are unremarkable. IMPRESSION: Diffuse osteopenia Moderate bilateral hip osteoarthrosis. RPTAT: HGDB .Alber Flores MD, MD Date Time Electronically viewed and signed by .Alber Flores MD, on 02/13/2017 12:22 .B/
== END | disposition home or self-care (01) ==
LOC: HKI 10:44
PROVIDERS: ATTEND Orthopaedic Surgery
DX: Z09 Encounter for follow-up examination after completed treatment for conditions other than malignant neoplasm (principal); I10 Essential (primary) hypertension; E78.00 Pure hypercholesterolemia, unspecified; K21.9 Gastro-esophageal reflux disease without esophagitis; Z95.2 Presence of prosthetic heart valve; Z96.651 Presence of right artificial knee joint
CPT/HCPCS: 73502

== ENCOUNTER 2017-06-20 11:05 | Emergency (ER) | payer MEDICARE, BC ==
[~2017-06-20] VITALS: Ht 167.6 cm; Wt 70.0 kg
[~2017-06-20 11:05] MED LIST changes: +METO-336 PO; -METO100T13 PO
[2017-06-20 11:10] VITALS: Ht 167.6 cm; Wt 70.0 kg
[2017-06-20] MEDS ORDERED: LIDOCAINE/MYLANTA 40 ML BTL PO ONE (15:00)
[2017-06-20] MEDS ORDERED: BARIUM SULFATE 135 ML (E-Z HD) PO ONE (15:11)
--- NOTE | 2017-06-20 15:56 | RADRPT ---
PROCEDURE: XR Chest 1 View. CLINICAL INDICATION: Chest pain TECHNIQUE: AP view of the chest was obtained. COMPARISON: DR MARCOS 02/08/2017 FINDINGS: The heart size is within normal limits. Calcified atherosclerosis is noted in the aorta. Rounded re trocardiac density is identified and may reflect a large hiatal hernia. See subsegmental atelectasis is noted at the lung bases. No consolidations are identified. No pneumothorax is seen. Osseous st ructures are intact. IMPRESSION: Calcified atherosclerosis in the aorta. Rounded retrocardiac density that may reflect a large hiatal hernia. Atelectasis at the lung bases. RPTAT: AA .Moises Melo MD, Date Time Electronically viewed and signed by .Moises Melo MD, on 06/20/2017 15:55 .P/
--- NOTE | 2017-06-20 16:04 | RADRPT ---
PROCEDURE: Barium swallow. CLINICAL INDICATION: Difficulty swallowing, chest pain with swallowing TECHNIQUE: Barium was administered orally and several spot and overhead radiographs were obtained. Fluoroscopic time was 1.0 minutes. 128 fluoroscopic images were obtained. COMPARISON: Chest radiograph performed same day FINDINGS: There is no aspiration. There are tertiary contractions of the distal esophagus. There is no stricture. There is no mass. There is no ulcer. A large hiatal hernia is present. Contrast passes through the hiatal hernia into the proximal small bowel without difficulty. A stent is noted projecting over the left lower chest. IMPRESSION: 1. Large hiatal hernia without evidence of obstruction. If there is clinical concern for mass or ulc er, upper endoscopy may provide additional detail. 2. Tertiary contractions of the distal esophagus. RPTAT: UU .Conrad Madden MD, MD Date Time Electronically viewed and signed by .Conrad Madden MD, on 06/20/2017 16:04 .K/
[2017-06-20] MEDS ORDERED: RANI150T9 PO (16:21)
[2017-06-20] MEDS ORDERED: MAG355OR14 PO (16:21)
--- NOTE | 2017-06-20 16:23 | ERD ---
ER Documentation Chief Complaint Date/Time DATE: 06/20/17 TIME: 16:22 Chief Complaint Complains of chest and back pain x 2 days HPI Patient is an 82-year-old female with osteoarthritis who presents with pain with swallowing. She says that for the past 2 days she has had pain in her chest and back when she swallows. She does not feel like food is getting stuck but she says that after she swallows food for approximately 15 minutes she has pain. It then goes away and it does not come back until she swallows food again. She says that currently she is not having any pain. She said the last 10-15 minutes at a time and is sharp in nature. Upon review of old medical records the patient has multiple visits to the ER for various complaints. Her primary doctor is Dr. Acevedo but he is on vacation. ROS All systems reviewed and are negative except as per history of present illness. Medications Home Meds Active Scripts Mag Hydrox/Al Hydrox/Simeth (Maalox Advanced Suspension) 355 Ml Oral.susp, 355 ML PO BID for 7 Days Prov:GABBY WOLF MD 06/20/17 Ranitidine Hcl* (Zantac*) 150 Mg Tablet, 150 MG PO BID Y for EPIGASTRIC PAIN, # 60 TAB Prov:GABBY WOLF MD 06/20/17 Cephalexin* (Keflex*) 500 Mg Capsule, 500 MG PO QID for 7 Days, CAP Prov:SHONDA JEFFRIES MD 02/08/17 Tramadol HCl (Tramadol HCl) 50 Mg Tablet, 50 MG PO Q6 for 30 Days, #60 TAB Prov:YULIYA CONCEPCION PA-C 11/26/16 Cephalexin* (Cephalexin*) 500 Mg Capsule, 500 MG PO TID for 7 Days, #21 CAP Prov:YULIYA CONCEPCION PA-C 11/26/16 Oxymetazoline Hcl* (Afrin [place]*) 0.05% - 15 Ml [place], 2 SPRAYS NASAL BID Y for nose bleed, #1 EA to each nostril Prov:ONI DINERO MD 08/30/15 Prednisone* (Prednisone*) 10 Mg Tab, 10 MG PO BID, #10 Prov:CUCO ACEVEDO MD 07/28/15 Potassium Chloride* (Klor-Con*) 20 Meq Tabsr, 20 MEQ PO DAILY, #30 TAB Prov:CUCO ACEVEDO MD 07/28/15 Metoprolol Succinate* (Toprol XL*) 100 Mg Tabsr, 100 MG PO DAILY, #30 TAB Prov:CUCO ACEVEDO MD 07/28/15 Furosemide* (Lasix*) 40 Mg Tab, 40 MG PO DAILY@06, #30 TAB Prov:CUCO ACEVEDO MD 07/28/15 Amlodipine Besylate* (Norvasc*) 2.5 Mg Tab, 2.5 MG PO DAILY, #30 TAB Prov:CUCO ACEVEDO MD 07/28/15 Reported Medications [preser vision] No Conflict Check, 1 TAB PO BID 11/23/16 Ketorolac Tromethamine Oph (Ketorolac Tromethamine Oph) 0.5%-5 Ml Opht Drops, 1 DROP BOTH EYES QID, EA 07/23/15 Calcium Carbonate* (Os-Thomas 500*) 1 Tab Tablet, 1 TAB PO DAILY, TAB 07/21/15 Multivitamins* (Once Daily*) 1 Tab Tablet, 1 TAB PO DAILY, TAB 07/21/15 Omeprazole* (Omeprazole*) 20 Mg Capsule.dr, 20 MG PO DAILY, CAP 07/21/15 Tramadol HCl (Tramadol HCl) 50 Mg Tab, 50 MG PO TID Y for PAIN, TAB 07/21/15 Atorvastatin Calcium* (Atorvastatin Calcium*) 20 Mg Tablet, 20 MG PO HS, TAB 07/21/15 Allergies Allergies: Coded Allergies: Penicillins (Verified Allergy, Unknown, 11/21/16) codeine (Verified Allergy, Unknown, 11/21/16) PMhx/Soc History of Surgery: Yes (hysterectomy, gall bladder, aortic valve replacement) Anesthesia Reaction: Yes (loss of memory on past surgery) Hx Neurological Disorder: No Hx Respiratory Disorders: No Hx Cardiac Disorders: Yes (CAD, HTN, high cholest, aortic valve replacement) Hx Psychiatric Problems: No Hx Miscellaneous Medical Probl: No Hx Alcohol Use: No Hx Substance Use: No Hx Tobacco Use: No Smoking Status: Never smoker FmHx Family History: No coronary disease Physical Exam Vitals Vital Signs Date Time Temp Pulse Resp B/P Pulse Ox O2 Delivery O2 Flow Rate FiO2 06/20/17 16:48 97.0 68 17 171/74 98 Room Air 06/20/17 11:10 98.6 88 20 112/62 97 Physical Exam Const: No acute distress Head: Atraumatic Eyes: Normal Conjunctiva ENT: Normal External Ears, Nose and Mouth. Neck: Full range of motion..~ No meningismus. Resp: Clear to auscultation bilaterally Cardio: Regular rate and rhythm, no murmurs Abd: Soft, non tender, non distended. Normal bowel sounds Skin: No petechiae or rashes Back: No midline or flank tenderness Ext: No cyanosis, or edema Neur: Awake and alert Psych: Normal Mood and Affect Results 24 hrs Current Medications Medications (Trade) Dose Ordered Sig/[place]ris Route PRN Reason Start Time Stop Time Status Last Admin Dose Admin Miscellaneous Medication (Gi Cocktail (2)) 40 ml ONCE ONCE PO 06/20/17 15:00 06/20/17 15:01 DC 06/20/17 15:16 Barium Sulfate (E-Z-Hd) 135 ml STK-MED ONCE PO 06/20/17 15:11 06/20/17 15:12 DC Procedures/MDM EKG read by me: Rate/Rhythm: Sinus bradycardia at a rate of 55 Intervals: Normal Impression: Bradycardia without ischemia Chest x-ray shows hiatal hernia per radiology. Barium swallow shows hiatal hernia but no signs of obstruction per radiology. Patient is an 82-year-old female who presents with pain with swallowing in the chest and back. EKG shows no signs of ischemia. Chest x-ray shows a hiatal hernia but no pneumothorax or pneumonia. Barium swallow shows no sign of esophageal obstruction at this time. I believe the patient would likely benefit from an outpatient endoscopy. At this point I doubt acute coronary syndrome, pneumonia, pneumothorax, pulmonary embolism, or aortic dissection. I do believe that close follow-up with her primary doctor as well as Dr. Munoz from gastroenterology would be appropriate. The patient could return for any worsening symptoms. The patient will be given a prescription for Maalox and Zantac. Departure Diagnosis: Primary Impression: Esophagitis Additional Impressions: Pain Chest pain Chest pain type: unspecified Qualified Code: R07.9 - Chest pain, unspecified type Condition: Fair Patient Instructions: Epigastric Pain (Uncertain Cause) Referrals: MENDOZA MUNOZ MD Additional Instructions: SPECIALIST: YOU HAVE A MEDICAL CONDITION WHICH REQUIRES YOU TO SEE A SPECIALIST WITHIN THE NEXT 1-2 DAYS. PLEASE FOLLOW UP WITH YOUR PRIMARY PHYSICIAN FOR REFFERAL.IF YOU DO NOT HAVE A PRIMARY CARE PHYSICIAN AND/OR YOU CAN NOT AFFORD TO SEE A PHYSICIAN THE FOLLOWING RESOURCES HAVE BEEN SUPPLIED TO YOU. IT IS YOUR RESPONSIBILITY TO BE SEEN BY THE SPECIALIST GABBY WOLF MD Jun 20, 2017 16:23
[2017-06-20 16:48] VITALS: BP 171/74; PULSE 68; RESP 17; TEMP 97
== END 2017-06-20 16:49 | disposition home or self-care (01) ==
LOC: E/R 11:05
DX: K20.9 Esophagitis, unspecified (principal); I25.10 Atherosclerotic heart disease of native coronary artery without angina pectoris; I10 Essential (primary) hypertension
CPT/HCPCS: 71010; 74230; 93005

== ENCOUNTER 2017-08-05 23:07 | Emergency (ER) | payer MEDICARE, BC ==
[~2017-08-05] VITALS: Ht 154.9 cm; Wt 77.0 kg
[~2017-08-05 23:07] MED LIST changes: +MAG355OR14 PO; +RANI150T9 PO
[2017-08-05 23:10] VITALS: Ht 154.9 cm; Wt 77.0 kg
[2017-08-05] MEDS ORDERED: SOD CHLORIDE 0.9% 500 ML IV STA (23:27)
--- NOTE | 2017-08-06 01:03 | RADRPT ---
PROCEDURE: XR Chest. CLINICAL INDICATION: Cough, chest pain TECHNIQUE: Single frontal view of the chest was obtained COMPARISON: Chest x-ray and esophagram 06/20/2017 FINDINGS: The heart does not appear to be grossly enlarged. Moderately large hiatal hernia again seen. Hypoinflation of the lungs. 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 There is no pleural effusion or pneumothorax. ECG lead projected over right upper lung. Osteoarthr osis at shoulders. IMPRESSION: Hypoinflation of the lungs. Moderately large hiatal hernia again seen. RPTAT: HJES .Josh Hyman MD, MD Date Time Electronically viewed and signed by .Josh Hyman MD, MD on 08/06/2017 01:02 .S/
--- NOTE | 2017-08-06 01:03 | RADRPT ---
PROCEDURE: XR Chest. CLINICAL INDICATION: Cough, chest pain TECHNIQUE: Single frontal view of the chest was obtained COMPARISON: Chest x-ray and esophagram 06/20/2017 FINDINGS: The heart does not appear to be grossly enlarged. Moderately large hiatal hernia again seen. Hypoinflation of the lungs. 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 There is no pleural effusion or pneumothorax. ECG lead projected over right upper lung. Osteoarthr osis at shoulders. IMPRESSION: Hypoinflation of the lungs. Moderately large hiatal hernia again seen. RPTAT: HJES .Josh Hyman MD, MD Date Time Electronically viewed and signed by .Josh Hyman MD, MD on 08/06/2017 01:02 .S/
--- NOTE | 2017-08-06 01:03 | RADRPT ---
PROCEDURE: XR Chest. CLINICAL INDICATION: Cough, chest pain TECHNIQUE: Single frontal view of the chest was obtained COMPARISON: Chest x-ray and esophagram 06/20/2017 FINDINGS: The heart does not appear to be grossly enlarged. Moderately large hiatal hernia again seen. Hypoinflation of the lungs. 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 There is no pleural effusion or pneumothorax. ECG lead projected over right upper lung. Osteoarthr osis at shoulders. IMPRESSION: Hypoinflation of the lungs. Moderately large hiatal hernia again seen. RPTAT: HJES .Josh Hyman MD, MD Date Time Electronically viewed and signed by .Josh Hyman MD, MD on 08/06/2017 01:02 .S/
--- NOTE | 2017-08-06 01:35 | ERD ---
ER Documentation Chief Complaint Chief Complaint weakness and dizziness an hour after taking an ambien HPI 82-year-old female says he feels slightly weak after taking Ambien. She said she took a little bit early and can make her way up the stairs. Denies any complaints currently. Denies any nausea vomiting fevers chills. Denies any chest pain. ROS All systems reviewed and are negative except as per history of present illness. Medications Home Meds Active Scripts Mag Hydrox/Al Hydrox/Simeth (Maalox Advanced Suspension) 355 Ml Oral.susp, 355 ML PO BID for 7 Days Prov:GABBY WOLF MD 06/20/17 Ranitidine Hcl* (Zantac*) 150 Mg Tablet, 150 MG PO BID Y for EPIGASTRIC PAIN, # 60 TAB Prov:GABBY WOLF MD 06/20/17 Cephalexin* (Keflex*) 500 Mg Capsule, 500 MG PO QID for 7 Days, CAP Prov:SHONDA JEFFRIES MD 02/08/17 Tramadol HCl (Tramadol HCl) 50 Mg Tablet, 50 MG PO Q6 for 30 Days, #60 TAB Prov:YULIYA CONCEPCION PA-C 11/26/16 Cephalexin* (Cephalexin*) 500 Mg Capsule, 500 MG PO TID for 7 Days, #21 CAP Prov:YULIYA CONCEPCION PA-C 11/26/16 Oxymetazoline Hcl* (Afrin [place]*) 0.05% - 15 Ml [place], 2 SPRAYS NASAL BID Y for nose bleed, #1 EA to each nostril Prov:ONI DINERO MD 08/30/15 Prednisone* (Prednisone*) 10 Mg Tab, 10 MG PO BID, #10 Prov:CUCO ACEVEDO MD 07/28/15 Potassium Chloride* (Klor-Con*) 20 Meq Tabsr, 20 MEQ PO DAILY, #30 TAB Prov:CUCO ACEVEDO MD 07/28/15 Metoprolol Succinate* (Toprol XL*) 100 Mg Tabsr, 100 MG PO DAILY, #30 TAB Prov:UCCO ACEVEDO MD 07/28/15 Furosemide* (Lasix*) 40 Mg Tab, 40 MG PO DAILY@06, #30 TAB Prov:CUCO ACEVEDO MD 07/28/15 Amlodipine Besylate* (Norvasc*) 2.5 Mg Tab, 2.5 MG PO DAILY, #30 TAB Prov:CUCO ACEVEDO MD 07/28/15 Reported Medications [preser vision] No Conflict Check, 1 TAB PO BID 11/23/16 Ketorolac Tromethamine Oph (Ketorolac Tromethamine Oph) 0.5%-5 Ml Opht Drops, 1 DROP BOTH EYES QID, EA 07/23/15 Calcium Carbonate* (Os-Thomas 500*) 1 Tab Tablet, 1 TAB PO DAILY, TAB 07/21/15 Multivitamins* (Once Daily*) 1 Tab Tablet, 1 TAB PO DAILY, TAB 07/21/15 Omeprazole* (Omeprazole*) 20 Mg Capsule.dr, 20 MG PO DAILY, CAP 07/21/15 Tramadol HCl (Tramadol HCl) 50 Mg Tab, 50 MG PO TID Y for PAIN, TAB 07/21/15 Atorvastatin Calcium* (Atorvastatin Calcium*) 20 Mg Tablet, 20 MG PO HS, TAB 07/21/15 Allergies Allergies: Coded Allergies: Penicillins (Verified Allergy, Unknown, 11/21/16) codeine (Verified Allergy, Unknown, 11/21/16) PMhx/Soc History of Surgery: Yes (hysterectomy, gall bladder, aortic valve replacement) Anesthesia Reaction: Yes (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 Neck: Full range of motion..~ No meningismus. Resp: Clear to auscultation bilaterally Cardio: Regular rate and rhythm, no murmurs Abd: Soft, non tender, non distended. Normal bowel sounds Skin: No petechiae or rashes Back: No midline or flank tenderness Ext: No cyanosis, or edema Neur: Awake and alert Psych: Normal Mood and Affect Results 24 hrs Current Medications Medications (Trade) Dose Ordered Sig/Norris Route PRN Reason Start Time Stop Time Status Last Admin Dose Admin Sodium Chloride (NS) 500 ml @ 500 mls/hr Q1H STAT IV 08/05/17 23:27 08/06/17 00:26 DC Procedures/MDM EKG: Rate/Rhythm: [Normal Sinus Rhythm] QRS, ST, T-waves: [No changes consistent w/ acute ischemia] Impression: [No evidence of ischemia or arrhythmia] Chest X-ray 1V Interpreted by me: Soft Tissue: No acute abnormalities Bones: No acute abnormalities Mediastinum/Cardiac Silhouette/Lungs: [No acute abnormalities] Medical decision-m[age]-year-old female who has what looks to be a mild medication reaction. At this point clinically stable. Patient be discharged home to follow-up with PCP. Departure Diagnosis: Primary Impression: Acute weakness Condition: Stable Patient Instructions: Drug Reaction, Other JAMMIE ELLISON Aug 06, 2017 01:35
[2017-08-06 01:59] VITALS: BP 154/67; PULSE 82; RESP 14; TEMP 97.9
== END 2017-08-06 02:03 | disposition home or self-care (01) ==
LOC: E/R 23:07
DX: R53.1 Weakness (principal); I25.10 Atherosclerotic heart disease of native coronary artery without angina pectoris; I10 Essential (primary) hypertension
CPT/HCPCS: 71010; 93005; 99284; J7040

== ENCOUNTER 2018-01-06 16:11 | Emergency (ER) | END 2018-01-06 20:46 | disposition home or self-care (01) ==

== ENCOUNTER 2018-01-07 16:57 | Observation (INO) | END 2018-01-10 21:30 ==

== ENCOUNTER 2018-07-19 17:42 | Observation (INO) | END 2018-07-23 13:29 ==

== ENCOUNTER 2018-07-23 15:25 | Inpatient (IN) | END 2018-08-06 14:00 | disposition home health service (06) | DRG 945 ==